=== PATIENT | female | born 1945 | race Two or more races ===

== ENCOUNTER 2019-01-22 09:17 | Inpatient (IN) | payer MEDICARE, MEDICAID ==
[2019-01-22] VITALS (7 sets, daily range): BP systolic 104–149; BP diastolic 59–83
[~2019-01-22] VITALS: Ht 165.1 cm; Wt 99.8 kg
[2019-01-22] MEDS ORDERED: LANTUS SOL100 UNIT/1 SUBQ (09:26)
[2019-01-22] MEDS ORDERED: LISINOPRIL5 MG ORAL (09:26)
--- NOTE | 2019-01-22 09:33 | NUR ---
ED Nurse Note: pt walked in due to shortness of breath started 2 weeks ago, pt stated she has trouble sleeping and sob got worsen 2 days ago. pt was complaining of 3/10 chest pain, no radiation, pt stated that the pain was worse yesterday, pt stated she was wheezing yesterday, denies hx of asthma. pt vs within normal limit.will continue to monitor
[2019-01-22] MEDS ORDERED: Aspirin Baby 81mg ORAL ONE (09:45)
--- NOTE | 2019-01-22 09:49 | Emergency Room Report ---
History of Present Illness General Chief Complaint: Dyspnea/Respdistress Source: Family Member Present Illness HPI .Patient is a 73-year-old female who presents after worsening shortness of breath. Patient had worsening shortness of breath with supine position. She reports having prior history of atrial fibrillation. She states that she is previous had unremarkable cardiac testing in the past. She had been having increased swelling to both legs. Patient reports having increased orthopnea as well as dyspnea on exertion. She states she has been sleeping with 3 pillows for the past few days. This she denies any recent cough she does report having some increased wheezingShe denies any fever. She had some increased nonproductive cough. She reports having been followed by Dr. Caballero for cardiology. Allergies: Coded Allergies: PENICILLINS (Verified Allergy, Unknown, 01/22/19) Patient History Past Medical History: see triage record Reviewed Nursing Documentation: PMH: Agreed; PSxH: Agreed Nursing Documentation-PMH Past Medical History: No History, Except For Hx Hypertension: Yes Hx Diabetes: Yes - liver transplant 2010 Review of Systems All Other Systems: negative except mentioned in HPI Physical Exam Vital Signs Date Time Temp Pulse Resp B/P (MAP) Pulse Ox O2 Delivery O2 Flow Rate FiO2 01/22/19 09:23 98.2 67 18 119/76 (90) 97 Room Air Sp02 EP Interpretation: reviewed, normal General Appearance: normal inspection, alert, mild distress, obese, Chronically Ill Head: atraumatic ENT: normal ENT inspection, hearing grossly normal, normal voice Neck: normal inspection, full range of motion, supple, no bony tend Respiratory: normal inspection, lungs clear, normal breath sounds, no respiratory distress, no retraction, no wheezing Cardiovascular #1: irregularly irregular, edema - 1+ Gastrointestinal: normal bowel sounds, non tender, soft, no guarding, hernia Genitourinary: no CVA tenderness Musculoskeletal: normal inspection, back normal, normal range of motion Neurologic: normal inspection, alert, oriented x3, responsive, hot box spotter III-XII nml as tested, speech normal Psychiatric: normal inspection, judgement/insight normal, mood/affect normal Skin: other - venous stasis changes to both legs Medical Decision Making Diagnostic Impression: Primary Impression: CHF (congestive heart failure) Additional Impression: Atrial fibrillation ER Course Patient presented for shortness of breath. Differential included but was not limited to anemia, pneumonia, pneumothorax, myocardial infarction, pericardial effusion, congestive heart failure, acidosis. Because of complexity of patient' s case laboratory testing and imaging studies were ordered. EKG interpreted by me showed atrial fibrillation with a rate of [address] or T wave changes.Patient was reportedly scheduled for a cardioversion procedure with Dr. Caballero on Thursday.Dr. Aquino was contacted and suggested the patient be admitted for diuresis. Dr. Yevs Story was contacted for inpatient management Labs Test 01/22/19 09:30 White Blood Count 6.4 K/UL (4.8-10.8) Red Blood Count 3.69 M/UL (4.20-5.40) Hemoglobin 12.2 G/DL (12.0-16.0) Hematocrit 36.1 % (37.0-47.0) Mean Corpuscular Volume 98 FL (80-99) Mean Corpuscular Hemoglobin 33.1 PG (27.0-31.0) Mean Corpuscular Hemoglobin Concent 33.8 G/DL (32.0-36.0) Red Cell Distribution Width 12.3 % (11.6-14.8) Platelet Count 174 K/UL (150-450) Mean Platelet Volume 8.1 FL (6.5-10.1) Neutrophils (%) (Auto) 69.7 % (45.0-75.0) Lymphocytes (%) (Auto) 21.0 % (20.0-45.0) Monocytes (%) (Auto) 6.8 % (1.0-10.0) Eosinophils (%) (Auto) 1.7 % (0.0-3.0) Basophils (%) (Auto) 0.8 % (0.0-2.0) Prothrombin Time 10.7 SEC (9.30-11.50) Prothromb Time International Ratio 1.0 (0.9-1.1) Activated Partial Thromboplast Time 25 SEC (23-33) Sodium Level 137 MMOL/L (136-145) Potassium Level 4.5 MMOL/L (3.5-5.1) Chloride Level 103 MMOL/L (98-107) Carbon Dioxide Level 26 MMOL/L (21-32) Anion Gap 8 mmol/L (5-15) Blood Urea Nitrogen 24 mg/dL (7-18) Creatinine 0.9 MG/DL (0.55-1.30) Estimat Glomerular Filtration Rate mL/min (>60) Glucose Level 148 MG/DL (74-106) Calcium Level 9.2 MG/DL (8.5-10.1) Total Bilirubin 0.8 MG/DL (0.2-1.0) Aspartate Amino Transf (AST/SGOT) 17 U/L (15-37) Alanine Aminotransferase (ALT/SGPT) 25 U/L (12-78) Alkaline Phosphatase 89 U/L (46-116) Total Creatine Kinase 70 U/L (26-308) Creatine Kinase MB 1.0 NG/ML (0.0-3.6) Creatine Kinase MB Relative Index 1.4 Troponin I 0.009 ng/mL (0.000-0.056) Pro-B-Type Natriuretic Peptide 1810 pg/mL (0-125) Total Protein 7.2 G/DL (6.4-8.2) Albumin 4.2 G/DL (3.4-5.0) Globulin 3.0 g/dL Albumin/Globulin Ratio 1.4 (1.0-2.7) Lipase 106 U/L (73-393) EKG Diagnostic Results Rate: normal Rhythm: other - afib Last Vital Signs Date Time Temp Pulse Resp B/P (MAP) Pulse Ox O2 Delivery O2 Flow Rate FiO2 01/22/19 09:30 67 18 Room Air 01/22/19 09:30 98.2 119/76 97 Status: unchanged Disposition: ADMITTED INPATIENT Condition: Serious Selwyn Couch MD Jan 22, 2019 09:49
--- NOTE | 2019-01-22 09:54 | NUR ---
ED Nurse Note: pt is medicated as ordered. lasix given iv and pt able to tolerate. ermd cancelled asa 161mg po order. eyewear manufacturing tech on bedside.
[2019-01-22 10:00] LABS: BASOPHILS % (AUTO) 0.8 % (0.0-2.0); EOSINOPHILS % (AUTO) 1.7 % (0.0-3.0); HEMATOCRIT 36.1 % (37.0-47.0); HEMOGLOBIN 12.2 G/DL (12.0-16.0); MEAN CORPUSCULAR VOLUME 98 FL (80-99); MONOCYTES % (AUTO) 6.8 % (1.0-10.0); NEUTROPHILS % (AUTO) 69.7 % (45.0-75.0); PLATELET COUNT 174 K/UL (150-450); RED BLOOD COUNT 3.69 M/UL (4.20-5.40); RED CELL DISTRIBUTION WIDTH 12.3 % (11.6-14.8); WHITE BLOOD COUNT 6.4 K/UL (4.8-10.8)
[2019-01-22 10:06] LABS: ANION GAP 8 mmol/L (5-15); BLOOD UREA NITROGEN 24 mg/dL (7-18); CALCIUM 9.2 MG/DL (8.5-10.1); CARBON DIOXIDE 26 MMOL/L (21-32); CHLORIDE 103 MMOL/L (98-107); CREATININE 0.9 MG/DL (0.55-1.30); POTASSIUM 4.5 MMOL/L (3.5-5.1); SODIUM 137 MMOL/L (136-145)
--- NOTE | 2019-01-22 10:06 | Diagnostic Imaging Report ---
EXAM: XR Chest, 1 View CLINICAL HISTORY: CP TECHNIQUE: Frontal view of the chest. COMPARISON: Chest radiograph on 12/03/2006 FINDINGS: Hardware: None. Lungs/pleura: Normal. No focal consolidation. No pleural effusion or pneumothorax. Heart/mediastinum: Similar to slightly increased enlargement of the cardiomediastinal silhouette. Soft tissues: Unremarkable. Bones: No acute fracture. Degenerative changes of the acromioclavicular joints. Upper abdomen: Normal. IMPRESSION: No acute disease identified.
[2019-01-22 10:18] LABS: ALANINE AMINOTRANSFERASE 25 U/L (12-78); ALBUMIN 4.2 G/DL (3.4-5.0); ALBUMIN/GLOBULIN RATIO 1.4 (1.0-2.7); ALKALINE PHOSPHATASE 89 U/L (46-116); ASPARTATE AMINO TRANSFERASE 17 U/L (15-37); BILIRUBIN,TOTAL 0.8 MG/DL (0.2-1.0); CREATINE KINASE 70 U/L (26-308)
--- NOTE | 2019-01-22 10:21 | NUR ---
ED Nurse Note: ermd on bedside talking with pt regarding the plan of care and imprtance of admission. pt able to verbalize understanding.
[2019-01-22] MEDS: Albuterol/Ipratropium 3ml neb HHN ONE ×2 (10:26→10:31)
--- NOTE | 2019-01-22 10:42 | NUR ---
ED Nurse Note: with new order from ermd, iv lasix given, pt able to tolerate. pt able to urinate independently on the bedside commode. no sob noted. pt vss within normal limit.
--- NOTE | 2019-01-22 11:28 | NUR ---
ED Nurse Note: attempted to give report to the accepting rn and rn not able to take the report yet. will f/u later.
--- NOTE | 2019-01-22 11:45 | NUR ---
ED Nurse Note: pt was transfered to tele bed and report was given to sridevi rn.pt vss and belongings was endorsed to rn.
[2019-01-22] MEDS ORDERED: ELIQUIS2.5 MG PO (11:46)
--- NOTE | 2019-01-22 12:00 | NUR ---
NURSE NOTES: Pt transferred safely to floor from ED. personnel monitor applied and pt is A-fib in the 70s. Patient belongings verified. Pt has iphone and electronic data interchange specialist at bedside. Report received from SONJA Willingham. Pt shows no signs of distress, denies pain/SOB. A+Ox4. Respirations are even and unlabored on room air. IV site is patent and intact. Bed is at lowest position, brakes engaged, siderails x2, bed alarm on, and call light within reach. Pt is in stable condition at this time; admission orders in. Will continue to monitor.
[2019-01-22 12:32] LABS: APPEARANCE,URINE CLEAR; BILIRUBIN, URINE NEGATIVE (NEGATIVE); COLOR,URINE PALE YELLOW; GLUCOSE, URINE (UA) NEGATIVE (NEGATIVE); KETONES,URINE NEGATIVE (NEGATIVE); LEUKOCYTE ESTERASE ,URINE NEGATIVE (NEGATIVE); NITRITE,URINE NEGATIVE (NEGATIVE); PH,URINE 7 (4.5-8.0); PROTEIN,URINE NEGATIVE (NEGATIVE); UROBILINOGEN,URINE NORMAL MG/DL (0.0-1.0)
[2019-01-22] MEDS ORDERED: Enalaprilat 1.25mg/ml Inj IV PRN (12:45)
[2019-01-22] MEDS ORDERED: Miralax 17gm pkt ORAL PRN (12:45)
[2019-01-22] MEDS ORDERED: dilTIAZem HCl 25mg/5ml Inj IV PRN (12:45)
[2019-01-22] MEDS ORDERED: Albuterol/Ipratropium 3ml neb HHN PRN (12:45)
[2019-01-22] MEDS ORDERED: Nitroglycerin Subl 0.4mg tab SL PRN (12:45)
--- NOTE | 2019-01-22 12:59 | Cardiology Progress Note ---
Assessment/Plan Assessment/Plan The patient is seen and examined, full consult note is dictated. Objective Last 24 Hour Vital Signs Date Time Temp Pulse Resp B/P (MAP) Pulse Ox O2 Delivery O2 Flow Rate FiO2 01/22/19 11:26 84 20 149/59 99 Room Air 01/22/19 10:41 70 22 104/62 96 Room Air 01/22/19 10:27 64 24 93 01/22/19 10:27 64 24 93 01/22/19 10:27 64 24 93 01/22/19 09:30 67 18 Room Air 01/22/19 09:30 98.2 67 18 119/76 97 Room Air 01/22/19 09:25 98.2 67 18 119/76 97 Room Air 01/22/19 09:23 98.2 67 18 119/76 (90) 97 Room Air Laboratory Tests Test 01/22/19 09:30 01/22/19 11:52 White Blood Count 6.4 K/UL (4.8-10.8) Red Blood Count 3.69 M/UL (4.20-5.40) L Hemoglobin 12.2 G/DL (12.0-16.0) Hematocrit 36.1 % (37.0-47.0) L Mean Corpuscular Volume 98 FL (80-99) Mean Corpuscular Hemoglobin 33.1 PG (27.0-31.0) H Mean Corpuscular Hemoglobin Concent 33.8 G/DL (32.0-36.0) Red Cell Distribution Width 12.3 % (11.6-14.8) Platelet Count 174 K/UL (150-450) Mean Platelet Volume 8.1 FL (6.5-10.1) Neutrophils (%) (Auto) 69.7 % (45.0-75.0) Lymphocytes (%) (Auto) 21.0 % (20.0-45.0) Monocytes (%) (Auto) 6.8 % (1.0-10.0) Eosinophils (%) (Auto) 1.7 % (0.0-3.0) Basophils (%) (Auto) 0.8 % (0.0-2.0) Prothrombin Time 10.7 SEC (9.30-11.50) Prothromb Time International Ratio 1.0 (0.9-1.1) Activated Partial Thromboplast Time 25 SEC (23-33) D-Dimer 1.89 mg/L FEU (0.00-0.49) H Sodium Level 137 MMOL/L (136-145) Potassium Level 4.5 MMOL/L (3.5-5.1) Chloride Level 103 MMOL/L (98-107) Carbon Dioxide Level 26 MMOL/L (21-32) Anion Gap 8 mmol/L (5-15) Blood Urea Nitrogen 24 mg/dL (7-18) H Creatinine 0.9 MG/DL (0.55-1.30) Estimat Glomerular Filtration Rate mL/min (>60) Glucose Level 148 MG/DL (74-106) H Calcium Level 9.2 MG/DL (8.5-10.1) Total Bilirubin 0.8 MG/DL (0.2-1.0) Aspartate Amino Transf (AST/SGOT) 17 U/L (15-37) Alanine Aminotransferase (ALT/SGPT) 25 U/L (12-78) Alkaline Phosphatase 89 U/L (46-116) Total Creatine Kinase 70 U/L (26-308) Creatine Kinase MB 1.0 NG/ML (0.0-3.6) Creatine Kinase MB Relative Index 1.4 Troponin I 0.009 ng/mL (0.000-0.056) Pro-B-Type Natriuretic Peptide 1810 pg/mL (0-125) H Total Protein 7.2 G/DL (6.4-8.2) Albumin 4.2 G/DL (3.4-5.0) Globulin 3.0 g/dL Albumin/Globulin Ratio 1.4 (1.0-2.7) Lipase 106 U/L (73-393) Urine Color Pale yellow Urine Appearance Clear Urine pH 7 (4.5-8.0) Urine Specific [place] 1.005 (1.005-1.035) Urine Protein Negative (NEGATIVE) Urine Glucose (UA) Negative (NEGATIVE) Urine Ketones Negative (NEGATIVE) Urine Blood Negative (NEGATIVE) Urine Nitrite Negative (NEGATIVE) Urine Bilirubin Negative (NEGATIVE) Urine Urobilinogen Normal MG/DL (0.0-1.0) Urine Leukocyte Esterase Negative (NEGATIVE) Virgil Caballero MD Jan 22, 2019 12:59
[2019-01-22] MEDS ORDERED: Dextrose 50% 25ml Syringe IV PRN (13:00)
[2019-01-22] MEDS ORDERED: VITAMIN D250000 UNI1 ORAL (13:08)
[2019-01-22] MEDS ORDERED: FUROSEMIDE20 M1 ORAL (13:08)
[2019-01-22] MEDS ORDERED: MAGNESIUM OXID250 MG PO (13:08)
[2019-01-22] MEDS ORDERED: LYRICA75 M1 ORAL (13:08)
[2019-01-22] MEDS ORDERED: OMEGA-3 1,0001 EACH PO (13:08)
[2019-01-22] MEDS ORDERED: METOPROLOL SUCC50 MG ORAL (13:08)
[2019-01-22] MEDS ORDERED: JANUVIA25 MG ORAL (13:08)
[2019-01-22] MEDS ORDERED: TACROLIMUS0.5 MG PO (13:08)
[2019-01-22] MEDS ORDERED: LIPITOR10 MG ORAL (13:08)
[2019-01-22] MEDS ORDERED: Metoprolol Succinate XL 50mg tab ORAL SCH (13:30)
--- NOTE | 2019-01-22 13:33 | NUR ---
CASE MANAGEMENT: INITIAL REVIEW 73 YO F PRESENTED TO OUR ED FROM HOME CC: DYSPNEA PMHx: HTN. DM. LIVER TRANSPLANT 2010. SI:CP. CHF EXACERBATION. A FIB. T 98.2 HR 67 RR 18 B/P 119/76 SATS 97% ON RA BUN 24 GLU 148 BNP 1810 DDIMER 1.89 IS: ASA PO X1 LASIX IV X2 DUO NEB HHN X1 PATIENT ADMITTED UNDER OBS TO TELE 01/22/2019 @ 1030 DCP: PATIENT TO BE DISCHARGED TO HOME ONCE MEDICALLY CLEARED. PLAN OF CARE: 2D ECHO CARDIO EVAL Addendum: 01/22/19 at 1342 by Starr Moreira CM INTERQUAL MET
--- NOTE | 2019-01-22 15:00 | NUR ---
NURSE NOTES: Received patient's med list from daughter. Input all of her meds. Left message with Dr. Suarez about the new medications and if he wanted to continue any of them; awaiting response.
[2019-01-22] MEDS: NovoLOG Insulin Flexpen SUBQ SCH ×2 (16:30→21:09)
--- NOTE | 2019-01-22 18:00 | Consultation ---
DATE OF CONSULTATION: 01/22/2019 CARDIOLOGY CONSULTATION CONSULTING PHYSICIAN: Virgil Caballero M.D. REFERRING PHYSICIAN: Yves Story D.O. REASON FOR CONSULTATION: Management of atrial fibrillation and congestive heart failure. HISTORY OF PRESENT ILLNESS: This is a 73-year-old female, known to ga, who was recently seen in my office. This is a very delightful 73-year-old female known to ga, who presented for progressive worsening shortness of breath associated with 3-pillow orthopnea, paroxysmal nocturnal dyspnea, and worsening of bilateral lower extremity edema. She has had persistent atrial fibrillation and she quit on anticoagulation therapy with Eliquis, and she agreed to go to [facility] as an outpatient for transesophageal echocardiography and cardioversion. However, she could now resist coming to the emergency department due to worsening of heart failure associated with atrial fibrillation and underlying problems. Her cardiovascular history is also significant for history of diabetes mellitus, hypertension, and obesity. She had history of liver transplantation in 2010. She also suffers from lower extremity venous insufficiency and is followed by Dr. Buchanan. At the time of my evaluation, the patient felt better as far as shortness of breath is concerned after receiving IV Lasix in the emergency department. Her blood pressure at the time of arrival was 119/76 mmHg and pulse rate was 67. A 12-lead electrocardiogram obtained in emergency department revealed atrial fibrillation with associated right bundle-branch block as well as left anterior fascicular block, but controlled ventricular response at 65. There was no acute ischemic changes. In fact, troponin I level was within normal limits. Her beta-natriuretic peptide confirmed the presence of a continued heart failure at the level of 1810. Chest x-ray also showed cardiomegaly mostly in the right atrial and ventricular chambers with evidence of pulmonary edema. The patient was admitted to telemetry for further evaluation. I have asked Dr. Yves Story to admit this patient in internal medicine. Dr. Suarez from Pulmonary will follow the patient. PAST MEDICAL HISTORY: 1. Hypertension. 2. Diabetes mellitus. 3. Liver transplant. 4. Bilateral lower extremity venous insufficiency. PAST SURGICAL HISTORY: Liver transplantation in 2010. MEDICATIONS: List of medications in the outpatient setting included apixaban 2.5 mg twice daily. Lipitor 10 mg p.o. at bedtime, vitamin D 50,000 units once a week for 6 weeks, Lasix 20 mg p.o. daily, Lantus insulin, lisinopril 2.5 mg p.o. daily, magnesium oxide 200 mg twice daily, metoprolol 50 mg daily, omega-3 fatty acid 1 tablet twice daily, Lyrica 25 mg twice daily, Januvia 100 mg p.o. daily, and tacrolimus 0.5 mg daily for liver transplant purposes. ALLERGIES: Penicillin. SOCIAL HISTORY: Denies any tobacco, alcohol, or illicit drug use. FAMILY HISTORY: No premature coronary artery disease in the first-degree relatives. REVIEW OF SYSTEMS: HEENT: Denies any headache, diplopia, or blurred vision. CONSTITUTIONAL: Denies any fever, chills, night sweats, some recent weight gain. CARDIOVASCULAR: Denies any chest pain, however, has been having progressively worsening shortness of breath, worsening of bilateral lower extremity edema, as well as 3+ orthopnea, and PND. Denies any syncope or palpitation. PULMONARY: Shortness of breath, but negative for hemoptysis or wheezing. GASTROINTESTINAL: Denies any nausea, vomiting, diarrhea, constipation, abdominal pain, or GI bleed. GENITOURINARY: Denies any hematuria, dysuria, or incontinence. NEUROLOGY: Denies any motor dysfunction, sensory deficit, or altered speech. PHYSICAL EXAMINATION: VITAL SIGNS: Blood pressure at the time of arrival to the hospital was 119/76, pulse of 67, respirations 18, O2 saturation 97% on room air, and temperature of 98.2 degrees Fahrenheit. GENERAL: The patient is a very pleasant 73-year-old female, in no apparent respiratory distress. Alert and oriented x4 with obesity. HEENT: Atraumatic and normocephalic. Anicteric. Pupils are equal, round, and reactive to light and accommodation. Extraocular muscles intact. NECK: JVP elevated about 15 cm. No carotid bruits. Carotid upstrokes 2+ bilaterally. CARDIOVASCULAR: Normal S1, S2. Irregularly irregular rhythm. A 2/6 mid systolic murmur at the left sternal border. PMI is at fourth intercostal space in the midclavicular line. LUNGS: Clear to auscultation bilaterally at this time. ABDOMEN: Soft, nontender, and nondistended. Obese. No hepatosplenomegaly. Positive bowel sounds. EXTREMITIES: There is 1+ bilateral lower extremity edema as well as discoloration in the inner distal third of the legs as well as ankles consistent with venous insufficiency. LABORATORY FINDINGS: WBC was 6.4, hemoglobin 12.2, hematocrit 36.1%, and platelet count is 174,000. INR was 1.0. Sodium 137, potassium is 4.5, chloride 103, bicarbonate 26, BUN 24, creatinine 0.9, and glucose is 148. Calcium is 9.2. Troponin I was 0.009. ProBNP was 1810. Chest x-ray revealed cardiomegaly with mild pulmonary edema. ASSESSMENT AND PLAN: This is a very unfortunate 73-year-old female seen in Cardiology consultation. 1. Atrial fibrillation with controlled ventricular response. We would like to attempt for transesophageal echocardiography and cardioversion, we will try to find a spot on 01/24/2019. We will discuss with Cardiology. There is no need to hold on Eliquis at this time. I will continue with her rate control with metoprolol. 2. Most likely acute on chronic diastolic congestive heart failure. We will continue with furosemide. We will check creatinine on a routine basis. We will obtain a magnesium level as well. A 2D echocardiogram we be held to decide the left ventricular systolic function and assessment of intracardiac filling pressures. 3. History of diabetes mellitus. She requires to be on statins. 4. History of hypertension. We will continue the patient on current blood pressure medication including lisinopril and metoprolol. Thank you, Dr. Story and Dr. Suarez, for managing this patient with me. Virgil Caballero M.D. DR: PASHA JOB#: [id number] CC:
--- NOTE | 2019-01-22 19:00 | NUR ---
NURSE NOTES: OBTAINED REPORT FROM ANDREW CASILLAS. PT RESTING IN BED FREE FROM APPARENT DISTRESS.
--- NOTE | 2019-01-22 19:06 | NUR ---
HAND-OFF: Report given to SONJA Douglas. Pt in stable condition; plan of care endorsed.
[2019-01-22] MEDS: Eliquis 2.5mg tablet ORAL SCH (21:06)
--- NOTE | 2019-01-22 21:44 | History & Physical ---
History and Physical History & Physicial Internal Med H&P Covering for Dr. Story DOS: 01/22/19 Chief Complaint: Dyspnea/Respdistress HPI 73-year-old female who presents after worsening shortness of breath. Patient had worsening shortness of breath with supine position. She reports having prior history of atrial fibrillation. She states that she is previous had unremarkable cardiac testing in the past. She had been having increased swelling to both legs. Patient reports having increased orthopnea as well as dyspnea on exertion. She states she has been sleeping with 3 pillows for the past few days. This she denies any recent cough she does report having some increased wheezingShe denies any fever. She had some increased nonproductive cough. She reports having been followed by Dr. Caballero for cardiology, will potentially undergo cardioversion Allergies: PENICILLINS (Verified Allergy, Unknown, 01/22/19) Past Medical History: see triage record Reviewed Nursing Documentation: PMH: Agreed; PSxH: Agreed Nursing Documentation-PMH Past Medical History: No History, Except For Hx Hypertension: Yes Hx Diabetes: Yes - liver transplant 2010 Review of Systems All Other Systems: negative except mentioned in HPI Physical Exam Vital Signs Date Time Temp Pulse Resp B/P (MAP) Pulse Ox O2 Delivery O2 Flow Rate FiO2 01/22/19 09:23 98.2 67 18 119/76 (90) 97 Room Air Sp02 EP Interpretation: reviewed, normal General Appearance: normal inspection, alert, mild distress, obese, Chronically Ill Head: atraumatic ENT: normal ENT inspection, hearing grossly normal, normal voice Neck: normal inspection, full range of motion, supple, no bony tend Respiratory: ++ sob wheezing bilaterally Cardiovascular #1: irregularly irregular, edema - 1+ Gastrointestinal: normal bowel sounds, non tender, soft, no guarding, hernia Genitourinary: no CVA tenderness Musculoskeletal: normal inspection, back normal, normal range of motion Neurologic: normal inspection, alert, oriented x3, responsive Psychiatric: normal inspection, judgement/insight normal, mood/affect normal Skin: other - venous stasis changes to both legs Labs: reviewd Imaging: noted Assessment and Recs: # Atrial fibrillation with controlled ventricular response. Per cards, would like to attempt for transesophageal echocardiography and cardioversion, potentially 01/24/19 --> ok to continue eliquis --> metop as needed # Acute on chronic diastolic congestive heart failure. --> lasix as needed diuresis --> 2decho as per cards # History of diabetes mellitus. --> continue statin and asa # History of hypertension. --> on lisinopril and mtp --> as per cards --> sbp goal <140 # Azotemia - consider ivf as per cards --> trend bmp as needed Arsh Kilpatrick MD Jan 22, 2019 21:44
[2019-01-23] VITALS: BP 99/59
[2019-01-23 04:00] VITALS: BP 128/74
[2019-01-23] MEDS: NovoLOG Insulin Flexpen SUBQ SCH ×4 (05:58→20:39)
--- NOTE | 2019-01-23 06:18 | NUR ---
NURSE NOTES: CALLED MD NAVA [phone] REGARDING CONTINUING HOME MED TACROLIMUS PER PT REQUEST, LEFT MESSAGE WITH CONTACT INFO. AWAITING CALL BACK.
--- NOTE | 2019-01-23 07:00 | NUR ---
HAND-OFF: Full report given to Mady CASILLAS. Pt resting in bed free from apparent distress.
[2019-01-23 07:13] LABS: BASOPHILS % (AUTO) 0.8 % (0.0-2.0); EOSINOPHILS % (AUTO) 2.2 % (0.0-3.0); HEMATOCRIT 35.2 % (37.0-47.0); HEMOGLOBIN 11.9 G/DL (12.0-16.0); LYMPHOCYTES % (AUTO) 26.7 % (20.0-45.0); MEAN CORPUSCULAR VOLUME 98 FL (80-99); NEUTROPHILS % (AUTO) 61.4 % (45.0-75.0); PLATELET COUNT 157 K/UL (150-450); RED CELL DISTRIBUTION WIDTH 12.1 % (11.6-14.8); WHITE BLOOD COUNT 6.1 K/UL (4.8-10.8)
[2019-01-23 07:44] LABS: CHOLESTEROL 172 MG/DL (< 200); HDL CHOLESTEROL 29 MG/DL (40-60); TRIGLYCERIDES 115 MG/DL (30-150)
--- NOTE | 2019-01-23 07:48 | NUR ---
NURSE NOTES: received report from Stella. patient in bed awake and alert. All safety precautions in place. will follow
[2019-01-23 08:00] VITALS: BP 120/62
[2019-01-23] MEDS: Lisinopril 2.5mg tab ORAL SCH (09:22)
[2019-01-23] MEDS: Eliquis 2.5mg tablet ORAL SCH ×2 (09:22→20:37)
[2019-01-23] MEDS: Aspirin Baby 81mg ORAL SCH (09:22)
[2019-01-23] MEDS: Metoprolol Succinate XL 50mg tab ORAL SCH (09:22)
[2019-01-23 12:00] VITALS: BP 112/64
--- NOTE | 2019-01-23 15:41 | NUR ---
CASE MANAGEMENT: REVIEW 01/23/2019 SI:CP. CHF EXACERBATION. A FIB. T 97.8 HR 60 RR 18 B/P 99/59 SATS 97% ON RA TROPONIN 0.015 IS: ELIQUIS PO Q12H PROGRAF PO QHS LISINOPRIL PO QD ASA PO QD PROTONIX PO QD TOPROL PO QD INSULIN ASPART SUBQ AC/HS TELE STATUS DCP: PATIENT TO BE DISCHARGED TO HOME ONCE MEDICALLY CLEARED. PLAN OF CARE: 2D ECHO EF 55-60% SHLOMO AND CARDIOVERSION
[2019-01-23 16:00] VITALS: BP 113/66
--- NOTE | 2019-01-23 19:49 | NUR ---
HAND-OFF: Report given to Susanne Echeverria.Patient stable at bedside. Plan of care endorsed.
--- NOTE | 2019-01-23 19:50 | NUR ---
NURSE NOTES: Report received from SONJA Earl. Observed pt sitting in chair with family members at bedside. A/O x4. Afib with HR of 70 noted. RA with no signs of SOB. IV on L AC, asymptomatic. Bed in the lowest position. Side rails up x2. Call light within reach. Will continue to monitor.
[2019-01-23 20:00] VITALS: BP 102/67
--- NOTE | 2019-01-23 20:05 | General Progress Note ---
Assessment/Plan Assessment/Plan: Assessment and Recs: # Atrial fibrillation with controlled ventricular response. Per cards, would like to attempt for transesophageal echocardiography and cardioversion, potentially 01/24/19 --> ok to continue eliquis --> metop as needed --> eval with cards # Acute on chronic diastolic congestive heart failure. --> lasix as needed diuresis --> 2decho as per cards # History of diabetes mellitus. --> continue statin and asa # History of hypertension. --> on lisinopril and mtp --> as per cards --> sbp goal <140 # Azotemia - consider ivf as per cards --> trend bmp as needed Appreciate insurance consultant recs Subjective HEENT: Denies: no symptoms, eye pain, blurred vision, tearing, double vision, ear pain, ear discharge, nose pain, nose congestion, throat pain, throat swelling, mouth pain, mouth swelling, other Cardiovascular: Denies: no symptoms, chest pain, edema, irregular heart rate, lightheadedness, palpitations, syncope, other Respiratory: Denies: no symptoms, cough, orthopnea, shortness of breath, SOB with excertion, SOB at rest, sputum, stridor, wheezing, other Gastrointestinal/Abdominal: Denies: no symptoms, abdomen distended, abdominal pain, black stools, tarry stools, blood in stool, constipated, diarrhea, difficulty swallowing, nausea, poor appetite, poor fluid intake, rectal bleeding , vomiting, other Genitourinary: Denies: no symptoms, burning, discharge, frequency, flank pain, hematuria, incontinence, pain, urgency, other Neurologic/Psychiatric: Denies: no symptoms, anxiety, depressed, emotional problems, headache, numbness, paresthesia, pre-existing deficit, seizure, tingling, tremors, weakness, other Endocrine: Denies: no symptoms, excessive sweating, flushing, intolerance to cold, intolerance to heat, increased hunger, increased thirst, increased urine, unexplained weight gain, unexplained weight loss, other Allergies: Coded Allergies: PENICILLINS (Verified Allergy, Unknown, 01/22/19) Subjective 01/23: vital signs improved, feeling better, tolerating meds well Objective Last 24 Hour Vital Signs Date Time Temp Pulse Resp B/P (MAP) Pulse Ox O2 Delivery O2 Flow Rate FiO2 01/23/19 18:00 59 01/23/19 16:00 97.5 65 20 113/66 (82) 92 01/23/19 13:01 63 18 97 Room Air 21 01/23/19 12:00 57 01/23/19 12:00 97.9 63 21 112/64 (80) 98 01/23/19 09:22 62 120/62 01/23/19 09:22 120/62 01/23/19 09:00 Room Air 01/23/19 08:00 64 01/23/19 08:00 97.9 62 22 120/62 (81) 97 01/23/19 04:00 97.7 70 18 128/74 (92) 98 01/23/19 04:00 61 01/23/19 00:00 97.8 60 18 99/59 (72) 97 01/23/19 00:00 63 Laboratory Tests 01/23/19 06:30: White Blood Count 6.1, Red Blood Count 3.60L, Hemoglobin 11.9L, Hematocrit 35.2L , Mean Corpuscular Volume 98, Mean Corpuscular Hemoglobin 33.1H, Mean Corpuscular Hemoglobin Concent 33.8, Red Cell Distribution Width 12.1, Platelet Count 157, Mean Platelet Volume 8.5, Neutrophils (%) (Auto) 61.4, Lymphocytes (% ) (Auto) 26.7, Monocytes (%) (Auto) 9.0, Eosinophils (%) (Auto) 2.2, Basophils ( %) (Auto) 0.8, Prothrombin Time 10.7, Prothromb Time International Ratio 1.0, Activated Partial Thromboplast Time 26, Troponin I 0.015, C-Reactive Protein, Quantitative 0.8, Triglycerides Level 115, Cholesterol Level 172, LDL Cholesterol 124H, HDL Cholesterol 29L, Cholesterol/HDL Ratio 5.9H, Thyroid Stimulating Hormone (TSH) 3.763H Height (Feet): 5 Height (Inches): 5.00 Weight (Pounds): 220 Objective General: normal inspection, alert, mild distress, obese, Chronically Ill ENT: normal ENT inspection, hearing grossly normal, normal voice Neck: normal inspection, full range of motion, supple, no bony tend Respiratory: ++ sob wheezing bilaterally Cardiovascular #1: irregularly irregular, edema - 1+ Gastrointestinal: normal bowel sounds, non tender, soft, no guarding, hernia Genitourinary: no CVA tenderness Msk: normal inspection, back normal, normal range of motion Neurologic: normal inspection, alert, oriented x3, responsive Psychiatric: normal inspection, judgement/insight normal, mood/affect normal Skin: other - venous stasis changes to both legs Arsh Kilpatrick MD Jan 23, 2019 20:05
--- NOTE | 2019-01-23 22:22 | Cardiology Progress Note ---
Assessment/Plan Assessment/Plan 1. Atrial fibrillation with controlled ventricular response. Scheduled for SHLOMO and cardioversion on Thursday. 2. Most likely acute on chronic diastolic congestive heart failure, continue furosemide. 2D echocardiogram confirm diastolic CHF, in addition, there is mild pulmonary HTN. 3. History of diabetes mellitus. Continue ASA and statins. 4. History of hypertension, continue lisinopril and metoprolol. Subjective Subjective Atrial fibrillation with controlled ventricular response now at 50. Feeling less SOB. Objective Last 24 Hour Vital Signs Date Time Temp Pulse Resp B/P (MAP) Pulse Ox O2 Delivery O2 Flow Rate FiO2 01/23/19 20:00 64 01/23/19 20:00 97.5 59 20 102/67 (79) 97 01/23/19 18:00 59 01/23/19 16:00 97.5 65 20 113/66 (82) 92 01/23/19 13:01 63 18 97 Room Air 21 01/23/19 12:00 57 01/23/19 12:00 97.9 63 21 112/64 (80) 98 01/23/19 09:22 62 120/62 01/23/19 09:22 120/62 01/23/19 09:00 Room Air 01/23/19 08:00 64 01/23/19 08:00 97.9 62 22 120/62 (81) 97 01/23/19 04:00 97.7 70 18 128/74 (92) 98 01/23/19 04:00 61 01/23/19 00:00 97.8 60 18 99/59 (72) 97 01/23/19 00:00 63 2D Echo: LVEF 55%, KRIS, Mild MR, RVSP 39 mmHg Laboratory Tests Test 01/23/19 06:30 White Blood Count 6.1 K/UL (4.8-10.8) Red Blood Count 3.60 M/UL (4.20-5.40) L Hemoglobin 11.9 G/DL (12.0-16.0) L Hematocrit 35.2 % (37.0-47.0) L Mean Corpuscular Volume 98 FL (80-99) Mean Corpuscular Hemoglobin 33.1 PG (27.0-31.0) H Mean Corpuscular Hemoglobin Concent 33.8 G/DL (32.0-36.0) Red Cell Distribution Width 12.1 % (11.6-14.8) Platelet Count 157 K/UL (150-450) Mean Platelet Volume 8.5 FL (6.5-10.1) Neutrophils (%) (Auto) 61.4 % (45.0-75.0) Lymphocytes (%) (Auto) 26.7 % (20.0-45.0) Monocytes (%) (Auto) 9.0 % (1.0-10.0) Eosinophils (%) (Auto) 2.2 % (0.0-3.0) Basophils (%) (Auto) 0.8 % (0.0-2.0) Prothrombin Time 10.7 SEC (9.30-11.50) Prothromb Time International Ratio 1.0 (0.9-1.1) Activated Partial Thromboplast Time 26 SEC (23-33) Troponin I 0.015 ng/mL (0.000-0.056) C-Reactive Protein, Quantitative 0.8 mg/dL (0.00-0.90) Triglycerides Level 115 MG/DL (30-150) Cholesterol Level 172 MG/DL (< 200) LDL Cholesterol 124 mg/dL (<100) H HDL Cholesterol 29 MG/DL (40-60) L Cholesterol/HDL Ratio 5.9 (3.3-4.4) H Thyroid Stimulating Hormone (TSH) 3.763 uiU/mL (0.358-3.740) Objective HEENT: Atraumatic and normocephalic. Anicteric. Pupils are equal, round, and reactive to light and accommodation. Extraocular muscles intact. NECK: JVP elevated about 15 cm. No carotid bruits. Carotid upstrokes 2+ bilaterally. CARDIOVASCULAR: Normal S1, S2. Irregularly irregular rhythm. A 2/6 mid systolic murmur at the left sternal border. PMI is at fourth intercostal space in the midclavicular line. LUNGS: Clear to auscultation bilaterally at this time. ABDOMEN: Soft, nontender, and nondistended. Obese. No hepatosplenomegaly. Positive bowel sounds. EXTREMITIES: No edema, clubbing or cyanosis. Virgil Caballero MD Jan 23, 2019 22:22
[2019-01-24] VITALS (14 sets, daily range): BP systolic 93–118; BP diastolic 61–78
--- NOTE | 2019-01-24 01:00 | NUR ---
NURSE NOTES: Observed pt sleeping in the bed. No distress noted at this time. Afib with HR of 56 noted on air sampling and monitoring. Will continue to monitor.
[2019-01-24] MEDS: NovoLOG Insulin Flexpen SUBQ SCH ×4 (05:50→20:25)
--- NOTE | 2019-01-24 05:54 | NUR ---
NURSE NOTES: BS of 139 noted. Pt will be NPO before procedure and no insulin given. Will continue to monitor.
--- NOTE | 2019-01-24 07:27 | NUR ---
NURSE NOTES: Report received from SONJA Echeverria. Patient awake. In RA. AOx4. Denies any pain or SOB. IV patent, flushed and SL. Bed on lowest position, side rails upx2, brakes engaged. Call light within easy reach.
--- NOTE | 2019-01-24 07:30 | NUR ---
NURSE NOTES: Patient communicated concern about not understanding procedure. To follow up.
--- NOTE | 2019-01-24 07:32 | NUR ---
HAND-OFF: Report given to SONJA Nash. No distress noted at this time.
--- NOTE | 2019-01-24 08:40 | NUR ---
NURSE NOTES: Procedure explanation given to Pt. by Noe. Consent signed.
--- NOTE | 2019-01-24 08:40 | General Progress Note ---
Assessment/Plan Assessment/Plan: Assessment and Recs: # Atrial fibrillation with controlled ventricular response, the hr is currently 50-70s. Per cards, would like to attempt for transesophageal echocardiography and cardioversion, potentially 01/24/19 --> ok to continue eliquis --> metop as needed --> eval with cards # Acute on chronic diastolic congestive heart failure. --> lasix as needed diuresis --> 2decho as per cards # Diabetes mellitus type 2. --> continue statin and asa # History of hypertension. --> on lisinopril and mtp --> as per cards --> sbp goal <140 # Azotemia - consider ivf as per cards --> trend bmp as needed Appreciate fashion consultant recs Subjective Constitutional: Denies: no symptoms, chills, diaphoresis, fever, malaise, weakness, other HEENT: Denies: no symptoms, eye pain, blurred vision, tearing, double vision, ear pain, ear discharge, nose pain, nose congestion, throat pain, throat swelling, mouth pain, mouth swelling, other Cardiovascular: Denies: no symptoms, chest pain, edema, irregular heart rate, lightheadedness, palpitations, syncope, other Respiratory: Denies: no symptoms, cough, orthopnea, shortness of breath, SOB with excertion, SOB at rest, sputum, stridor, wheezing, other Gastrointestinal/Abdominal: Denies: no symptoms, abdomen distended, abdominal pain, black stools, tarry stools, blood in stool, constipated, diarrhea, difficulty swallowing, nausea, poor appetite, poor fluid intake, rectal bleeding , vomiting, other Genitourinary: Denies: no symptoms, burning, discharge, frequency, flank pain, hematuria, incontinence, pain, urgency, other Neurologic/Psychiatric: Denies: no symptoms, anxiety, depressed, emotional problems, headache, numbness, paresthesia, pre-existing deficit, seizure, tingling, tremors, weakness, other Endocrine: Denies: no symptoms, excessive sweating, flushing, intolerance to cold, intolerance to heat, increased hunger, increased thirst, increased urine, unexplained weight gain, unexplained weight loss, other Allergies: Coded Allergies: PENICILLINS (Verified Allergy, Unknown, 01/22/19) Subjective 01/23: vital signs improved, feeling better, tolerating meds well 01/24: feeling better, has been npo for procedure, pending with cards Objective Last 24 Hour Vital Signs Date Time Temp Pulse Resp B/P (MAP) Pulse Ox O2 Delivery O2 Flow Rate FiO2 01/24/19 04:00 77 01/24/19 04:00 97.9 60 20 109/62 (78) 97 01/24/19 00:07 76 01/24/19 00:00 97.7 54 20 113/61 (78) 97 01/23/19 23:57 Room Air 01/23/19 21:00 Room Air 01/23/19 20:00 64 01/23/19 20:00 97.5 59 20 102/67 (79) 97 01/23/19 18:00 59 01/23/19 16:00 97.5 65 20 113/66 (82) 92 01/23/19 13:01 63 18 97 Room Air 21 01/23/19 12:00 57 01/23/19 12:00 97.9 63 21 112/64 (80) 98 01/23/19 09:22 62 120/62 01/23/19 09:22 120/62 01/23/19 09:00 Room Air Intake and Output 01/23/19 01/24/19 19:00 07:00 Intake Total 120 ml Balance 120 ml Intake Oral 120 ml # Voids 5 2 # Bowel Movements 2 Laboratory Tests 01/24/19 06:40: Troponin I 0.000 Height (Feet): 5 Height (Inches): 5.00 Weight (Pounds): 220 Objective General: normal inspection, alert, mild distress, obese, Chronically Ill ENT: normal ENT inspection, hearing grossly normal, normal voice Neck: normal inspection, full range of motion, supple, no bony tend Respiratory: ++ sob wheezing bilaterally Cardiovascular #1: irregularly irregular, edema - 1+ Gastrointestinal: normal bowel sounds, non tender, soft, no guarding, hernia Genitourinary: no CVA tenderness Msk: normal inspection, back normal, normal range of motion Neurologic: normal inspection, alert, oriented x3, responsive Psychiatric: normal inspection, judgement/insight normal, mood/affect normal Skin: other - venous stasis changes to both legs Arsh Kilpatrick MD Jan 24, 2019 08:40
[2019-01-24] MEDS: Metoprolol Succinate XL 50mg tab ORAL SCH (09:00)
[2019-01-24] MEDS: Aspirin Baby 81mg ORAL SCH (09:00)
[2019-01-24] MEDS: Eliquis 2.5mg tablet ORAL SCH ×2 (09:00→20:23)
[2019-01-24] MEDS: Lisinopril 2.5mg tab ORAL SCH (09:01)
--- NOTE | 2019-01-24 09:24 | Anethesia Preoperative Eval ---
Anesthesia Pre-op PMH/ROS General Date of Evaluation: Jan 24, 2019 Anesthesiologist: Nas ASA Score: ASA 4 Mallampati Score Class I : Soft palate, uvula, fauces, pillars visible Class II: Soft palate, uvula, fauces visible Class III: Soft palate, base of uvula visible Class IV: Only hard plate visible Mallampati Classification: Class III Surgeon: Federico Diagnosis: Afib Surgical Procedure: SHLOMO with cardioversion Anesthesia History: none Family History: no anesthesia problems Allergies: Coded Allergies: PENICILLINS (Verified Allergy, Unknown, 01/22/19) Medications: see eMAR Patient NPO?: Yes NPO Date: Jan 23, 2019 NPO Time: 22:00 Past Medical History Cardiovascular: Reports: HTN, arrhythmia - afib, other - CHF,HLD; Denies: CAD, NM, valve dz Pulmonary: Denies: asthma, COPD, JAMES, other Gastrointestinal/Genitourinary: Reports: other - s/p liver transplant; Denies: GERD, CRI, ESRD Neurologic/Psychiatric: Denies: dementia, CVA, depression/anxiety, TIA, other Endocrine: Reports: DM; Denies: hypothyroidism, steroids, other HEENT: Denies: cataract (L), cataract (R), glaucoma, HABEMATOLEL (L), HABEMATOLEL (R), other Hematology/Immune: Denies: anemia, DVT, bleeding disorder, other Musculoskeletal/Integumentary: Denies: OA, RA, DJD, DDD, edema, other Other: obesity Anesthesia Pre-op Phys. Exam Physician Exam Last Vital Signs Date Time Temp Pulse Resp B/P (MAP) Pulse Ox O2 Delivery O2 Flow Rate FiO2 01/24/19 09:01 118/78 01/24/19 09:00 67 01/24/19 08:00 97.9 18 98 01/23/19 23:57 Room Air 01/23/19 13:01 21 Constitutional: NAD Cardiovascular: RRR Respiratory: CTA Airway Exam Mallampati Score: Class III MO: limited Neck: short, obese ROM: limited Anesthesia Pre-op A/P Labs Chemistry Test 01/24/19 06:40 Troponin I 0.000 ng/mL (0.000-0.056) Studies Pre-op Studies: EKG - afib, echo - mild to mod TR, RVSP [id number] pulm htn Risk Assessment & Plan Assessment: ASA IV Plan: MAC Status Change Before Surgery: No Pre-Antibiotics Drug: N/A Patrizia Reyna MD Jan 24, 2019 09:24
[2019-01-24] MEDS ORDERED: Lidocaine 1% MPF 10mg/ml 5ml ONE (10:17)
[2019-01-24] MEDS ORDERED: Propofol 200mg/20ml IV ONE (10:17)
[2019-01-24] MEDS ORDERED: LR 1000ml ONE (10:30)
--- NOTE | 2019-01-24 11:20 | Pre-Procedure Note/Attestation ---
Pre-Procedure Note/Attestation Complete Prior to Procedure Procedure Narrative: Transesophageal echocardiography followed by cardioversion Indications for Procedure Pre-Operative Diagnosis: Atrial fibrillation Attestation I attest that I discussed the nature of the procedure; its benefits; risks and complications; and alternatives (and the risks and benefits of such alternatives ), prior to the procedure, with the patient (or the patient's legal marketing representative). I attest that, if there was a reasonable possibility of needing a blood transfusion, the patient (or the patient's legal marketing representative) was given the [facility] standardized written summary, pursuant to the Lars Murdo Blood Safety Act ([place] Health and Safety Code # 1645, as amended). I attest that I re-evaluated the patient just prior to the surgery and that there has been no change in the patient's H&P, except as documented below: Virgil Caballero MD Jan 24, 2019 11:20
--- NOTE | 2019-01-24 11:22 | Brief Operative Note ---
Immediate Post Operative Note Operative Note Chief Complaint: Dyspnea Pre-op Diagnosis: Atrial fibrillation Procedure: SHLOMO followed by cardioversion Post-op Diagnosis: Sinus bradycardia Diastolic CHF Surgeon: Inessa Warren MD ,[facility] Director Of Casino: None Anesthesia: general Specimen: none Complications: none Condition: stable Fluids: None Estimated Blood Loss: none Drains: none Implant(s) used?: No Virgil Caballero MD Jan 24, 2019 11:22
--- NOTE | 2019-01-24 11:38 | Immediate Post-Op Evaluation ---
Immediate Post-Op Evalulation Immediate Post-Op Evalulation Procedure: SHLOMO with cardioversion Date of Evaluation: Jan 23, 2019 Time of Evaluation: 21:00 IV Fluids: 2200 Blood Products: 0 Estimated Blood Loss: 0 Urinary Output: 0 Blood Pressure Systolic: 93 Blood Pressure Diastolic: 61 Pulse Rate: 45 Respiratory Rate: 17 O2 Sat by Pulse Oximetry: 100 Temperature (Fahrenheit): 97.5 Pain Score (1-10): 0 Nausea: No Vomiting: No Complications 0 Patient Status: awake, reacts, patent, none Hydration Status: adequate Drug: N/A Patrizia Reyna MD Jan 24, 2019 11:38
--- NOTE | 2019-01-24 11:50 | NUR ---
CASE MANAGEMENT:REVIEW 01/24/19 SI: AFIB BRADYCARDIA. CHF 97.5 45 17 93/65 100% ON 6L/MASK TROPONIN(-) X4 IS: PROCEDURE: SHLOMO FOLLOWED BY [facility] ASA PO QD JANUVIA PO QD PROGRAF PO QHS PROTONIX PO QD ELIQUIS PO Q12 : TELEMETRY STATUS DCP: FROM HOME
--- NOTE | 2019-01-24 12:02 | Pulmonology Progress Note ---
Assessment/Plan Problems: (1) Atrial fibrillation (2) CHF (congestive heart failure) (3) Bradycardia Assessment/Plan check echo, d/w Dr Caballero for cardioversion today. watch intake output Lasix ad per cardio. Subjective ROS Limited/Unobtainable: No Constitutional: Reports: no symptoms HEENT: Repors: no symptoms Respiratory: Reports: no symptoms Allergies: Coded Allergies: PENICILLINS (Verified Allergy, Unknown, 01/22/19) Objective Last 24 Hour Vital Signs Date Time Temp Pulse Resp B/P (MAP) Pulse Ox O2 Delivery O2 Flow Rate FiO2 01/24/19 11:52 45 20 98/62 100 Simple Mask 6.0 01/24/19 11:42 43 17 97/64 100 Simple Mask 6.0 01/24/19 11:38 45 17 100 01/24/19 11:37 44 18 96/65 100 Simple Mask 6.0 01/24/19 11:32 97.5 45 17 93/65 100 Simple Mask 6.0 01/24/19 09:49 57 50 97 Room Air 21 01/24/19 09:01 118/78 01/24/19 09:00 67 118/78 01/24/19 09:00 Room Air 01/24/19 08:00 66 01/24/19 08:00 97.9 67 18 118/78 (91) 98 01/24/19 04:00 77 01/24/19 04:00 97.9 60 20 109/62 (78) 97 01/24/19 00:07 76 01/24/19 00:00 97.7 54 20 113/61 (78) 97 01/23/19 23:57 Room Air 01/23/19 21:00 Room Air 01/23/19 20:00 64 01/23/19 20:00 97.5 59 20 102/67 (79) 97 01/23/19 18:00 59 01/23/19 16:00 97.5 65 20 113/66 (82) 92 01/23/19 13:01 63 18 97 Room Air 21 Intake and Output 01/23/19 01/24/19 19:00 07:00 Intake Total 120 ml Balance 120 ml Intake Oral 120 ml # Voids 5 2 # Bowel Movements 2 General Appearance: WD/WN HEENT: normocephalic, atraumatic Respiratory/Chest: chest wall non-tender, normal breath sounds Breasts: no masses Cardiovascular: normal rate Abdomen: normal bowel sounds Genitourinary: normal external genitalia Extremities: no clubbing Skin: no rash Laboratory Tests 01/24/19 06:40: Troponin I 0.000 Current Medications Medications (Trade) Dose Ordered Sig/Brooke Route PRN Reason Start Time Stop Time Status Last Admin Dose Admin Acetaminophen (Tylenol) 650 mg Q4H PRN ORAL FEVER (temp>100.5F) 01/22/19 12:45 02/21/19 12:44 01/22/19 16:45 Albuterol/ Ipratropium (Albuterol/ Ipratropium) 3 ml Q4H PRN HHN Shortness of Breath 01/22/19 12:45 01/27/19 12:44 Apixaban (Eliquis) 2.5 mg EVERY 12 HOURS ORAL 01/22/19 21:00 02/21/19 20:59 01/23/19 20:37 Aspirin (ASA) 81 mg DAILY ORAL 01/25/19 09:00 02/24/19 08:59 Dextrose (Dextrose 50%) 25 ml Q30M PRN IV Hypoglycemia 01/22/19 13:00 02/21/19 12:50 Dextrose (Dextrose 50%) 50 ml Q30M PRN IV hypoglycemia 01/22/19 13:00 02/21/19 12:59 Diltiazem HCl (Cardizem) 10 mg Q1H PRN IV heart rate more than 120 01/22/19 12:45 02/21/19 12:44 Enalaprilat (Vasotec) 2.5 mg Q6H PRN IV sbp more than 160 01/22/19 12:45 02/21/19 12:44 Insulin Aspart (NovoLOG) BEFORE MEALS AND HS SUBQ 01/22/19 16:30 02/21/19 16:29 01/23/19 20:39 Nitroglycerin (Ntg) 0.4 mg Q5M PRN SL Prn Chest Pain 01/22/19 12:45 02/21/19 12:44 Ondansetron HCl (Zofran) 4 mg Q6H PRN IVP Nausea & Vomiting 01/22/19 12:45 02/21/19 12:44 Pantoprazole (Protonix) 40 mg DAILY ORAL 01/23/19 09:00 8/27/19 08:59 01/24/19 09:01 Polyethylene Glycol (Miralax) 17 gm DAILYPRN PRN ORAL Constipation 01/22/19 12:45 02/21/19 12:44 Sitagliptin Phosphate (Januvia) 100 mg DAILY ORAL 01/24/19 09:00 02/23/19 08:59 01/24/19 09:00 Tacrolimus (Prograf) 0.5 mg BEDTIME ORAL 01/23/19 21:00 02/22/19 20:59 01/23/19 20:37 Tacrolimus (Prograf) 1 mg DAILY ORAL 01/23/19 09:00 02/22/19 08:59 01/24/19 09:01 Temazepam (Restoril) 15 mg HSPRN PRN ORAL Insomnia 01/22/19 12:45 01/29/19 12:44 01/23/19 22:53 Regan Suarez MD Jan 24, 2019 12:02
--- NOTE | 2019-01-24 12:30 | NUR ---
NURSE NOTES: Received telephone report from Lorena CASILLAS PACU.
--- NOTE | 2019-01-24 12:35 | NUR ---
NURSE NOTES: Pt. arrived at the unit at 1235.
--- NOTE | 2019-01-24 12:40 | NUR ---
HAND-OFF: Report given to SONJA Beck. Pt. in stable condition. Patient's belongings singed and filed.
--- NOTE | 2019-01-24 12:40 | NUR ---
NURSE NOTES: Received report from Saad CASILLAS.
[2019-01-24] MEDS ORDERED: Nitroglycerin Subl 0.4mg tab SL PRN (14:30)
[2019-01-24] MEDS ORDERED: Enalaprilat 1.25mg/ml Inj IV PRN (14:35)
[2019-01-24] MEDS ORDERED: Miralax 17gm pkt ORAL PRN (14:35)
[2019-01-24] MEDS ORDERED: Albuterol/Ipratropium 3ml neb HHN PRN (14:35)
[2019-01-24] MEDS ORDERED: dilTIAZem HCl 25mg/5ml Inj IV PRN (14:45)
--- NOTE | 2019-01-24 18:15 | Procedure Note ---
DATE OF PROCEDURE: 01/24/2019 ATTENDING SURGEON: Virgil Caballero M.D., .A.C.C. PROCEDURE: Transesophageal echocardiography. PREOPERATIVE DIAGNOSIS: Evaluation for cardiac thrombus. POSTOPERATIVE DIAGNOSES: 1. No evidence of left atrial appendage thrombus. 2. Emptying velocity low at 0.25 m/sec. 3. There was no spontaneous echo contrast within the left atrial cavity, although there was severe biatrial enlargement. PLAN AND RECOMMENDATION: Given the fact that left atrial appendage thrombus is ruled out, we will follow with direct current cardioversion of atrial fibrillation using general anesthesia. DESCRIPTION OF PROCEDURE: Both transesophageal echocardiography and the benefits of direct current cardioversion was discussed with the patient, the risks, benefits, and alternatives of these procedures were provided. The patient agreed to the procedure and signed the informed consent. The patient was brought down to the OR room #7 in a fasting state. She was placed in the left lateral decubitus position. Bite block was placed within the mouth. The patient was attached to the central communications specialist. At the presence of anesthesiologist and using propofol as the general anesthetic agent, transesophageal echocardiography probe was advanced through the bite block, passed through the pharyngeal wall, and secured at a position just about 35 cm from the incisors teeth. After review of the cardiac structure, the probe was removed. The patient tolerated the procedure well without having any complications. CONCLUSION: No evidence of left atrial appendage thrombus. Virgil Caballero M.D. DR: KAYLI JOB#: [id number] CC:
--- NOTE | 2019-01-24 18:30 | Procedure Note ---
DATE OF PROCEDURE: 01/24/2019 PROCEDURE: Direct current cardioversion of atrial fibrillation. ATTENDING SURGEON: Virgil Caballero M.D., [facility]. PREOPERATIVE DIAGNOSIS: Atrial fibrillation with rapid ventricular response on arrival to the hospital with associated acute diastolic congestive heart failure. POSTOPERATIVE DIAGNOSIS: Successful cardioversion of atrial fibrillation to sinus bradycardia using 300 joules of direct current energy using synchronized mode. PLAN AND RECOMMENDATION: We will continue with obtaining 12-lead electrocardiogram for verification of the rhythm. The patient will be started on amiodarone tablet today. Given the fact that the patient showed sinus bradycardia, we will place a hold on metoprolol. We will continue monitoring the patient's rhythm closely. We may transfer the patient to step-down unit for close observation given profound sinus bradycardia right after cardioversion. The patient will be continued on combination of Eliquis and aspirin. DESCRIPTION OF PROCEDURE: After obtaining the informed consent and placed in the chart and following transesophageal echocardiography and ruling out left atrial appendage thrombus, the patient was in general anesthetic state with propofol, initially 200 joules of biphasic synchronized energy applied which did not convert atrial fibrillation to sinus rhythm. With a few changes on the position of the pads and increase of synchronized energy to 300 and ultimately to 360, after the fourth shock that be applied 360 joules of energy, atrial fibrillation was successfully converted to sinus bradycardia at rate of approximately 40 to 42 beats per minute with frequent APCs and single . The patient tolerated the procedure well without developing any complications. CONCLUSION: Successful cardioversion of atrial fibrillation to sinus bradycardia. Virgil Caballero M.D. DR: KAYLI JOB#: [id number] CC:
--- NOTE | 2019-01-24 19:20 | NUR ---
NURSE NOTES: received report from Ebony CASILLAS, pt. in bed awake, A/O X's4-able to make needs known, no signs or symptoms of acute cardiac or respiratory distress noted, bed in lowest position and call light within easy reach, bed alarm on, side rails up x's3 and safety brakes engaged, pt. appears to be be resting comfortable watching television, pt. aware to ask for assist when ambulating to use bed side commode, pt. appears to be sating well on room air at 98%- no distress noted, left AC 20G- IV intact and patent- SL, safety measures continued, will continue with plan of care.
--- NOTE | 2019-01-24 19:28 | Cardiology Progress Note ---
Assessment/Plan Assessment/Plan 1. Atrial fibrillation, s/p SHLOMO and successful cardioversion to SB, start very low sotalol as she takes Tacrolimus and combination would increase risk of CT prolongation. Tacrolimus level today. 2. Most likely acute on chronic diastolic congestive heart failure, stable off, furosemide. 2D echocardiogram confirm diastolic CHF, in addition, there is mild pulmonary HTN. 3. History of diabetes mellitus. Continue ASA and statins. 4. History of hypertension, currently hypotensive, hold on ACEI. Subjective Subjective Converted to SB/SR heart rate ranging from 50-60. No dizziness or lightheadedness. Objective Last 24 Hour Vital Signs Date Time Temp Pulse Resp B/P (MAP) Pulse Ox O2 Delivery O2 Flow Rate FiO2 01/24/19 16:00 97.9 54 22 103/63 (76) 99 01/24/19 15:49 56 01/24/19 12:41 51 01/24/19 12:35 97.7 52 21 99/63 (75) 95 01/24/19 12:32 97.6 47 18 98/67 98 Nasal Cannula 2.0 01/24/19 12:22 45 19 99/68 99 Nasal Cannula 2.0 01/24/19 12:12 97.5 46 20 96/68 99 Nasal Cannula 2.0 01/24/19 12:02 46 19 101/66 100 Nasal Cannula 2.0 01/24/19 11:52 45 20 98/62 100 Simple Mask 6.0 01/24/19 11:42 43 17 97/64 100 Simple Mask 6.0 01/24/19 11:38 45 17 100 01/24/19 11:37 44 18 96/65 100 Simple Mask 6.0 01/24/19 11:32 97.5 45 17 93/65 100 Simple Mask 6.0 01/24/19 09:49 57 50 97 Room Air 21 01/24/19 09:01 118/78 01/24/19 09:00 67 118/78 01/24/19 09:00 Room Air 01/24/19 08:00 66 01/24/19 08:00 97.9 67 18 118/78 (91) 98 01/24/19 04:00 77 01/24/19 04:00 97.9 60 20 109/62 (78) 97 01/24/19 00:07 76 01/24/19 00:00 97.7 54 20 113/61 (78) 97 01/23/19 23:57 Room Air 01/23/19 21:00 Room Air 01/23/19 20:00 64 01/23/19 20:00 97.5 59 20 102/67 (79) 97 Intake and Output 01/23/19 01/24/19 18:59 06:59 Intake Total 120 ml Balance 120 ml Intake Oral 120 ml # Voids 5 2 # Bowel Movements 2 2D Echo: LVEF 55%, KRIS, Mild MR, RVSP 39 mmHg Laboratory Tests Test 01/24/19 06:40 Troponin I 0.000 ng/mL (0.000-0.056) Objective HEENT: Atraumatic and normocephalic. Anicteric. Pupils are equal, round, and reactive to light and accommodation. Extraocular muscles intact. NECK: JVP elevated about 5cm. No carotid bruits. Carotid upstrokes 2+ bilaterally. CARDIOVASCULAR: Normal S1, S2. Regular rate and rhythm. A 2/6 mid systolic murmur at the left sternal border. PMI is at fourth intercostal space in the midclavicular line. LUNGS: Clear to auscultation bilaterally at this time. ABDOMEN: Soft, nontender, and nondistended. Obese. No hepatosplenomegaly. Positive bowel sounds. EXTREMITIES: No edema, clubbing or cyanosis, inner ankle discoloration due to venous insufficiency. Virgil Caballero MD Jan 24, 2019 19:28
--- NOTE | 2019-01-24 19:28 | NUR ---
HAND-OFF: Report given to Jeremy CASILLAS. Pt. remain stable.
--- NOTE | 2019-01-24 21:20 | NUR ---
NURSE NOTES: left message for DR. Caballero, if okay to administer Sotalol as patients heart rate is in low 50's- awaiting for call back from doctor.
--- NOTE | 2019-01-24 21:39 | NUR ---
NURSE NOTES: left message for doctor regarding rx Sotalol- awaiting for call back from doctor.
--- NOTE | 2019-01-24 21:41 | NUR ---
NURSE NOTES: per DR. Caballero not to administer Sotalol- due to heart rate in 50's.
[2019-01-24] MEDS: Sotalol 80mg tab ORAL SCH (21:43)
[2019-01-25] VITALS: BP 103/74
[2019-01-25 04:00] VITALS: BP 91/65
[2019-01-25 04:31] LABS: BASOPHILS % (AUTO) 0.7 % (0.0-2.0); EOSINOPHILS % (AUTO) 1.5 % (0.0-3.0); HEMATOCRIT 34.5 % (37.0-47.0); HEMOGLOBIN 11.8 G/DL (12.0-16.0); LYMPHOCYTES % (AUTO) 18.9 % (20.0-45.0); MEAN CORPUSCULAR VOLUME 98 FL (80-99); MONOCYTES % (AUTO) 9.5 % (1.0-10.0); NEUTROPHILS % (AUTO) 69.4 % (45.0-75.0); PLATELET COUNT 165 K/UL (150-450); RED BLOOD COUNT 3.52 M/UL (4.20-5.40); RED CELL DISTRIBUTION WIDTH 12.4 % (11.6-14.8); WHITE BLOOD COUNT 8.4 K/UL (4.8-10.8)
[2019-01-25] MEDS: Sotalol 80mg tab ORAL SCH ×2 (05:17→14:34)
[2019-01-25] MEDS: NovoLOG Insulin Flexpen SUBQ SCH ×3 (06:07→18:39)
--- NOTE | 2019-01-25 06:58 | NUR ---
HAND-OFF: Report given to Ebony CASILLAS, pt. remains stable and no signs of distress noted. Nurse aware to f/u with doctor regarding redness to left side of back area.
--- NOTE | 2019-01-25 07:00 | NUR ---
NURSE NOTES: Received bedside report from Dina CASILLAS. Pt. in bed, asleep but arousable. A/O x 4. No sign of distress. Denies pain at present. IV site at left AC #20g. in placed SL. Pleasant and cooperative with care. Will cont. to monitor.
[2019-01-25 08:00] VITALS: BP 110/69
--- NOTE | 2019-01-25 08:52 | 48 Hour Post Anesthesia Eval ---
Post Anesthesia Evaluation Procedure: SHLOMO with cardioversion Date of Evaluation: Jan 25, 2019 Time of Evaluation: 08:51 Blood Pressure Systolic: 110 0: 69 Pulse Rate: 51 Respiratory Rate: 20 Temperature (Fahrenheit): 97.6 O2 Sat by Pulse Oximetry: 98 Airway: patent Nausea: No Vomiting: No Pain Intensity: 0 Hydration Status: adequate Cardiopulmonary Status: Stable Mental Status/LOC: patient returned to baseline Follow-up Care/Observations: 0 Post-Anesthesia Complications: 0 Follow-up care needed: N/A Clem Linton MD Jan 25, 2019 08:52
[2019-01-25] MEDS ORDERED: Aspirin Baby 81mg ORAL SCH ×2 (09:00)
[2019-01-25] MEDS: Eliquis 2.5mg tablet ORAL SCH (09:23)
--- NOTE | 2019-01-25 09:47 | Hematology/Onc Progress Note ---
Assessment/Plan Assessment/Plan Assessment and Recs: # Atrial fibrillation with controlled ventricular response, the hr is currently 50-70s. Per cards, s/p cardioversion on 01/24/19 --> ok to continue eliquis --> satolol and vasotec --> eval with cards # Anemia of chronic disease --> hgb trend 12.2-->11.9-->11.8 --> if downtrends, consider panel w/u, at this time hold off --> no e/o hemolysis # Acute on chronic diastolic congestive heart failure. --> lasix as needed diuresis --> per cards # Diabetes mellitus type 2 --> continue statin and asa # Hypertension --> on lisinopril and mtp --> as per cards --> sbp goal <140 # Azotemia - consider ivf as per cards --> trend bmp as needed Appreciate hematology oncology consultant recs Subjective Constitutional: Denies: no symptoms, chills, fever, malaise, weakness, other HEENT: Denies: no symptoms, eye pain, blurred vision, tearing, double vision, ear pain, ear discharge, nose pain, nose congestion, throat pain, throat swelling, mouth pain, mouth swelling, other Cardiovascular: Denies: no symptoms, chest pain, edema, irregular heart rate, lightheadedness, palpitations, syncope, other Gastrointestinal/Abdominal: Denies: no symptoms, abdomen distended, abdominal pain, black stools, tarry stools, blood in stool, constipated, diarrhea, difficulty swallowing, nausea, poor appetite, poor fluid intake, rectal bleeding , vomiting, other Endocrine: Denies: no symptoms, excessive sweating, flushing, intolerance to cold, intolerance to heat, increased hunger, increased thirst, increased urine, unexplained weight gain, unexplained weight loss, other Allergies: Coded Allergies: PENICILLINS (Verified Allergy, Unknown, 01/22/19) Subjective 01/23: vital signs improved, feeling better, tolerating meds well 01/24: feeling better, has been npo for procedure, pending with cards 01/25: is a+o x4, no f/c noted, no bleeding, no night sweats, in sb Objective Objective Current Medications Medications (Trade) Dose Ordered Sig/Brooke Route PRN Reason Start Time Stop Time Status Last Admin Dose Admin Acetaminophen (Tylenol) 650 mg Q4H PRN ORAL FEVER (temp>100.5F) 01/24/19 16:45 02/21/19 12:44 01/25/19 04:57 Albuterol/ Ipratropium (Albuterol/ Ipratropium) 3 ml Q4H PRN HHN Shortness of Breath 01/24/19 14:35 01/27/19 14:34 Apixaban (Eliquis) 2.5 mg EVERY 12 HOURS ORAL 01/24/19 21:00 02/21/19 20:59 01/25/19 09:23 Aspirin (ASA) 81 mg DAILY ORAL 01/25/19 09:00 02/24/19 08:59 01/25/19 09:23 Dextrose (Dextrose 50%) 25 ml Q30M PRN IV Hypoglycemia 01/24/19 14:30 02/21/19 12:50 Dextrose (Dextrose 50%) 50 ml Q30M PRN IV hypoglycemia 01/24/19 14:30 02/21/19 12:59 Diltiazem HCl (Cardizem) 10 mg Q1H PRN IV heart rate more than 120 01/24/19 14:45 02/21/19 12:44 Enalaprilat (Vasotec) 2.5 mg Q6H PRN IV sbp more than 160 01/24/19 14:35 02/21/19 14:34 Insulin Aspart (NovoLOG) BEFORE MEALS AND HS SUBQ 01/24/19 16:30 02/21/19 16:29 01/25/19 06:07 Nitroglycerin (Ntg) 0.4 mg Q5M PRN SL Prn Chest Pain 01/24/19 14:30 02/21/19 12:44 Pantoprazole (Protonix) 40 mg DAILY ORAL 01/25/19 09:00 02/22/19 08:59 01/25/19 09:23 Polyethylene Glycol (Miralax) 17 gm DAILYPRN PRN ORAL Constipation 01/24/19 14:35 02/23/19 14:34 Sitagliptin Phosphate (Januvia) 100 mg DAILY ORAL 01/25/19 09:00 02/23/19 08:59 01/25/19 09:23 Sotalol HCl (Betapace) 40 mg EVERY 8 HOURS ORAL 01/24/19 22:00 02/23/19 21:59 Tacrolimus (Prograf) 0.5 mg BEDTIME ORAL 01/24/19 21:00 02/22/19 20:59 01/24/19 20:23 Tacrolimus (Prograf) 1 mg DAILY ORAL 01/25/19 09:00 02/22/19 08:59 01/25/19 09:23 Temazepam (Restoril) 15 mg HSPRN PRN ORAL Insomnia 01/24/19 14:30 01/31/19 14:29 Last 24 Hour Vital Signs Date Time Temp Pulse Resp B/P (MAP) Pulse Ox O2 Delivery O2 Flow Rate FiO2 01/25/19 08:52 51 20 98 01/25/19 08:00 97.6 51 20 110/69 (83) 98 01/25/19 05:27 97.9 01/25/19 05:17 59 91/65 01/25/19 04:00 97.9 61 18 91/65 (74) 98 01/25/19 03:24 52 01/25/19 00:00 Room Air 01/25/19 00:00 97.8 52 18 103/74 (84) 100 01/24/19 23:47 47 01/24/19 21:43 52 100/68 01/24/19 21:40 55 16 98 Nasal Cannula 2.0 01/24/19 21:40 98 Nasal Cannula 2.0 28 01/24/19 20:00 97.5 56 16 100/68 (79) 98 01/24/19 20:00 Room Air 01/24/19 20:00 52 01/24/19 16:00 97.9 54 22 103/63 (76) 99 01/24/19 15:49 56 01/24/19 12:41 51 01/24/19 12:35 97.7 52 21 99/63 (75) 95 01/24/19 12:32 97.6 47 18 98/67 98 Nasal Cannula 2.0 01/24/19 12:22 45 19 99/68 99 Nasal Cannula 2.0 01/24/19 12:12 97.5 46 20 96/68 99 Nasal Cannula 2.0 01/24/19 12:02 46 19 101/66 100 Nasal Cannula 2.0 01/24/19 11:52 45 20 98/62 100 Simple Mask 6.0 01/24/19 11:42 43 17 97/64 100 Simple Mask 6.0 01/24/19 11:38 45 17 100 01/24/19 11:37 44 18 96/65 100 Simple Mask 6.0 01/24/19 11:32 97.5 45 17 93/65 100 Simple Mask 6.0 01/24/19 09:49 57 50 97 Room Air 21 01/24/19 09:01 118/78 01/24/19 09:00 67 118/78 01/24/19 09:00 Room Air 01/24/19 08:00 66 01/24/19 08:00 97.9 67 18 118/78 (91) 98 01/24/19 04:00 77 01/24/19 04:00 97.9 60 20 109/62 (78) 97 01/24/19 00:07 76 01/24/19 00:00 97.7 54 20 113/61 (78) 97 01/23/19 23:57 Room Air 01/23/19 21:00 Room Air 01/23/19 20:00 64 01/23/19 20:00 97.5 59 20 102/67 (79) 97 01/23/19 18:00 59 01/23/19 16:00 97.5 65 20 113/66 (82) 92 01/23/19 13:01 63 18 97 Room Air 21 01/23/19 12:00 57 01/23/19 12:00 97.9 63 21 112/64 (80) 98 Intake and Output 01/24/19 01/25/19 19:00 07:00 Intake Total 650 ml Output Total 500 ml Balance 150 ml Intake Oral 450 ml IV Total 200 ml Output Urine Total 500 ml # Voids 3 3 # Bowel Movements 1 2 Labs Test 01/22/19 11:52 01/22/19 15:00 01/23/19 06:30 01/24/19 06:40 Urine Color Pale yellow Urine Appearance Clear Urine pH 7 (4.5-8.0) Urine Specific Emmalena 1.005 (1.005-1.035) Urine Protein Negative (NEGATIVE) Urine Glucose (UA) Negative (NEGATIVE) Urine Ketones Negative (NEGATIVE) Urine Blood Negative (NEGATIVE) Urine Nitrite Negative (NEGATIVE) Urine Bilirubin Negative (NEGATIVE) Urine Urobilinogen Normal MG/DL (0.0-1.0) Urine Leukocyte Esterase Negative (NEGATIVE) Troponin I 0.012 ng/mL (0.000-0.056) 0.015 ng/mL (0.000-0.056) 0.000 ng/mL (0.000-0.056) White Blood Count 6.1 K/UL (4.8-10.8) Red Blood Count 3.60 M/UL (4.20-5.40) Hemoglobin 11.9 G/DL (12.0-16.0) Hematocrit 35.2 % (37.0-47.0) Mean Corpuscular Volume 98 FL (80-99) Mean Corpuscular Hemoglobin 33.1 PG (27.0-31.0) Mean Corpuscular Hemoglobin Concent 33.8 G/DL (32.0-36.0) Red Cell Distribution Width 12.1 % (11.6-14.8) Platelet Count 157 K/UL (150-450) Mean Platelet Volume 8.5 FL (6.5-10.1) Neutrophils (%) (Auto) 61.4 % (45.0-75.0) Lymphocytes (%) (Auto) 26.7 % (20.0-45.0) Monocytes (%) (Auto) 9.0 % (1.0-10.0) Eosinophils (%) (Auto) 2.2 % (0.0-3.0) Basophils (%) (Auto) 0.8 % (0.0-2.0) Prothrombin Time 10.7 SEC (9.30-11.50) Prothromb Time International Ratio 1.0 (0.9-1.1) Activated Partial Thromboplast Time 26 SEC (23-33) C-Reactive Protein, Quantitative 0.8 mg/dL (0.00-0.90) Triglycerides Level 115 MG/DL (30-150) Cholesterol Level 172 MG/DL (< 200) LDL Cholesterol 124 mg/dL (<100) HDL Cholesterol 29 MG/DL (40-60) Cholesterol/HDL Ratio 5.9 (3.3-4.4) Thyroid Stimulating Hormone (TSH) 3.763 uiU/mL (0.358-3.740) Test 01/24/19 20:10 01/25/19 03:30 White Blood Count 8.4 K/UL (4.8-10.8) Red Blood Count 3.52 M/UL (4.20-5.40) Hemoglobin 11.8 G/DL (12.0-16.0) Hematocrit 34.5 % (37.0-47.0) Mean Corpuscular Volume 98 FL (80-99) Mean Corpuscular Hemoglobin 33.5 PG (27.0-31.0) Mean Corpuscular Hemoglobin Concent 34.2 G/DL (32.0-36.0) Red Cell Distribution Width 12.4 % (11.6-14.8) Platelet Count 165 K/UL (150-450) Mean Platelet Volume 8.4 FL (6.5-10.1) Neutrophils (%) (Auto) 69.4 % (45.0-75.0) Lymphocytes (%) (Auto) 18.9 % (20.0-45.0) Monocytes (%) (Auto) 9.5 % (1.0-10.0) Eosinophils (%) (Auto) 1.5 % (0.0-3.0) Basophils (%) (Auto) 0.7 % (0.0-2.0) Height (Feet): 5 Height (Inches): 5.00 Weight (Pounds): 220 Objective General: normal inspection, alert, mild distress, obese, Chronically Ill ENT: normal ENT inspection, hearing grossly normal, normal voice Neck: normal inspection, full range of motion, supple, no bony tend Respiratory: ++ sob wheezing bilaterally Cardiovascular #1: irregularly irregular, edema - 1+ Gastrointestinal: normal bowel sounds, non tender, soft, no guarding, hernia Genitourinary: no CVA tenderness Msk: normal inspection, back normal, normal range of motion Neurologic: normal inspection, alert, oriented x3, responsive Psychiatric: normal inspection, judgement/insight normal, mood/affect normal Skin: other - venous stasis changes to both legs Arsh Kilpatrick MD Jan 25, 2019 09:47
--- NOTE | 2019-01-25 10:00 | Pulmonology Progress Note ---
Assessment/Plan Problems: (1) Atrial fibrillation (2) CHF (congestive heart failure) (3) Bradycardia Assessment/Plan Sinus now tolerated cardioversion yesterday very well watch intake output Lasix ad per cardio. Subjective ROS Limited/Unobtainable: No Constitutional: Reports: no symptoms HEENT: Repors: no symptoms Respiratory: Reports: no symptoms Allergies: Coded Allergies: PENICILLINS (Verified Allergy, Unknown, 01/22/19) Objective Last 24 Hour Vital Signs Date Time Temp Pulse Resp B/P (MAP) Pulse Ox O2 Delivery O2 Flow Rate FiO2 01/25/19 08:52 51 20 98 01/25/19 08:00 48 01/25/19 08:00 97.6 51 20 110/69 (83) 98 01/25/19 05:27 97.9 01/25/19 05:17 59 91/65 01/25/19 04:00 97.9 61 18 91/65 (74) 98 01/25/19 03:24 52 01/25/19 00:00 Room Air 01/25/19 00:00 97.8 52 18 103/74 (84) 100 01/24/19 23:47 47 01/24/19 21:43 52 100/68 01/24/19 21:40 55 16 98 Nasal Cannula 2.0 28 01/24/19 21:40 98 Nasal Cannula 2.0 28 01/24/19 20:00 97.5 56 16 100/68 (79) 98 01/24/19 20:00 Room Air 01/24/19 20:00 52 01/24/19 16:00 97.9 54 22 103/63 (76) 99 01/24/19 15:49 56 01/24/19 12:41 51 01/24/19 12:35 97.7 52 21 99/63 (75) 95 01/24/19 12:32 97.6 47 18 98/67 98 Nasal Cannula 2.0 01/24/19 12:22 45 19 99/68 99 Nasal Cannula 2.0 01/24/19 12:12 97.5 46 20 96/68 99 Nasal Cannula 2.0 01/24/19 12:02 46 19 101/66 100 Nasal Cannula 2.0 01/24/19 11:52 45 20 98/62 100 Simple Mask 6.0 01/24/19 11:42 43 17 97/64 100 Simple Mask 6.0 01/24/19 11:38 45 17 100 01/24/19 11:37 44 18 96/65 100 Simple Mask 6.0 01/24/19 11:32 97.5 45 17 93/65 100 Simple Mask 6.0 Intake and Output 01/24/19 01/25/19 19:00 07:00 Intake Total 650 ml Output Total 500 ml Balance 150 ml Intake Oral 450 ml IV Total 200 ml Output Urine Total 500 ml # Voids 3 3 # Bowel Movements 1 2 General Appearance: WD/WN HEENT: atraumatic, anicteric Respiratory/Chest: chest wall non-tender, normal breath sounds Cardiovascular: normal peripheral pulses, regular rhythm Abdomen: normal bowel sounds, no organomegaly Genitourinary: normal external genitalia Extremities: no cyanosis Skin: no rash Laboratory Tests 01/24/19 20:10: Tacrolimus (Prograf) Level [Pending] 01/25/19 03:30: White Blood Count 8.4, Red Blood Count 3.52L, Hemoglobin 11.8L, Hematocrit 34.5L , Mean Corpuscular Volume 98, Mean Corpuscular Hemoglobin 33.5H, Mean Corpuscular Hemoglobin Concent 34.2, Red Cell Distribution Width 12.4, Platelet Count 165, Mean Platelet Volume 8.4, Neutrophils (%) (Auto) 69.4, Lymphocytes (% ) (Auto) 18.9L, Monocytes (%) (Auto) 9.5, Eosinophils (%) (Auto) 1.5, Basophils (%) (Auto) 0.7 Current Medications Medications (Trade) Dose Ordered Sig/Brooke Route PRN Reason Start Time Stop Time Status Last Admin Dose Admin Acetaminophen (Tylenol) 650 mg Q4H PRN ORAL FEVER (temp>100.5F) 01/24/19 16:45 02/21/19 12:44 01/25/19 04:57 Albuterol/ Ipratropium (Albuterol/ Ipratropium) 3 ml Q4H PRN HHN Shortness of Breath 01/24/19 14:35 01/27/19 14:34 Apixaban (Eliquis) 2.5 mg EVERY 12 HOURS ORAL 01/24/19 21:00 02/21/19 20:59 01/25/19 09:23 Aspirin (ASA) 81 mg DAILY ORAL 01/25/19 09:00 02/24/19 08:59 01/25/19 09:23 Dextrose (Dextrose 50%) 25 ml Q30M PRN IV Hypoglycemia 01/24/19 14:30 02/21/19 12:50 Dextrose (Dextrose 50%) 50 ml Q30M PRN IV hypoglycemia 01/24/19 14:30 02/21/19 12:59 Diltiazem HCl (Cardizem) 10 mg Q1H PRN IV heart rate more than 120 01/24/19 14:45 02/21/19 12:44 Enalaprilat (Vasotec) 2.5 mg Q6H PRN IV sbp more than 160 01/24/19 14:35 02/21/19 14:34 Insulin Aspart (NovoLOG) BEFORE MEALS AND HS SUBQ 01/24/19 16:30 02/21/19 16:29 01/25/19 06:07 Nitroglycerin (Ntg) 0.4 mg Q5M PRN SL Prn Chest Pain 01/24/19 14:30 02/21/19 12:44 Pantoprazole (Protonix) 40 mg DAILY ORAL 01/25/19 09:00 02/22/19 08:59 01/25/19 09:23 Polyethylene Glycol (Miralax) 17 gm DAILYPRN PRN ORAL Constipation 01/24/19 14:35 02/23/19 14:34 Sitagliptin Phosphate (Januvia) 100 mg DAILY ORAL 01/25/19 09:00 02/23/19 08:59 01/25/19 09:23 Sotalol HCl (Betapace) 40 mg EVERY 8 HOURS ORAL 01/24/19 22:00 02/23/19 21:59 Tacrolimus (Prograf) 0.5 mg BEDTIME ORAL 01/24/19 21:00 02/22/19 20:59 01/24/19 20:23 Tacrolimus (Prograf) 1 mg DAILY ORAL 01/25/19 09:00 02/22/19 08:59 01/25/19 09:23 Temazepam (Restoril) 15 mg HSPRN PRN ORAL Insomnia 01/24/19 14:30 01/31/19 14:29 Regan Suarez MD Jan 25, 2019 10:00
[2019-01-25 12:00] VITALS: BP 94/52
--- NOTE | 2019-01-25 13:22 | General Progress Note ---
Assessment/Plan Problem List: (1) Atrial fibrillation ICD Codes: I48.91 - Unspecified atrial fibrillation SNOMED: 83260881 (2) Bradycardia ICD Codes: R00.1 - Bradycardia, unspecified SNOMED: 34803602 (3) CHF (congestive heart failure) ICD Codes: I50.9 - Heart failure, unspecified SNOMED: 91225508 Status: stable, progressing Assessment/Plan: pt diet cardio eval cbc bmp am dc plan w hh Subjective Constitutional: Reports: weakness Allergies: Coded Allergies: PENICILLINS (Verified Allergy, Unknown, 01/22/19) All Systems: reviewed and negative except above Subjective eating calm Objective Last 24 Hour Vital Signs Date Time Temp Pulse Resp B/P (MAP) Pulse Ox O2 Delivery O2 Flow Rate FiO2 01/25/19 09:00 Room Air 01/25/19 08:52 51 20 98 01/25/19 08:00 48 01/25/19 08:00 97.6 51 20 110/69 (83) 98 01/25/19 05:27 97.9 01/25/19 05:17 59 91/65 01/25/19 04:00 97.9 61 18 91/65 (74) 98 01/25/19 03:24 52 01/25/19 00:00 Room Air 01/25/19 00:00 97.8 52 18 103/74 (84) 100 01/24/19 23:47 47 01/24/19 21:43 52 100/68 01/24/19 21:40 55 16 98 Nasal Cannula 2.0 28 01/24/19 21:40 98 Nasal Cannula 2.0 28 01/24/19 20:00 97.5 56 16 100/68 (79) 98 01/24/19 20:00 Room Air 01/24/19 20:00 52 01/24/19 16:00 97.9 54 22 103/63 (76) 99 01/24/19 15:49 56 Intake and Output 01/24/19 01/25/19 19:00 07:00 Intake Total 650 ml Output Total 500 ml Balance 150 ml Intake Oral 450 ml IV Total 200 ml Output Urine Total 500 ml # Voids 3 3 # Bowel Movements 1 2 Laboratory Tests 01/24/19 20:10: Tacrolimus (Prograf) Level [Pending] 01/25/19 03:30: White Blood Count 8.4, Red Blood Count 3.52L, Hemoglobin 11.8L, Hematocrit 34.5L , Mean Corpuscular Volume 98, Mean Corpuscular Hemoglobin 33.5H, Mean Corpuscular Hemoglobin Concent 34.2, Red Cell Distribution Width 12.4, Platelet Count 165, Mean Platelet Volume 8.4, Neutrophils (%) (Auto) 69.4, Lymphocytes (% ) (Auto) 18.9L, Monocytes (%) (Auto) 9.5, Eosinophils (%) (Auto) 1.5, Basophils (%) (Auto) 0.7 Height (Feet): 5 Height (Inches): 5.00 Weight (Pounds): 220 General Appearance: lethargic EENT: normal ENT inspection Neck: normal alignment Cardiovascular: normal peripheral pulses, normal rate, regular rhythm Respiratory/Chest: chest wall non-tender, lungs clear, normal breath sounds Abdomen: normal bowel sounds, non tender, soft Extremities: normal inspection Edema: no edema noted Arm (L), no edema noted Arm (R), no edema noted Leg (L), no edema noted Leg (R), no edema noted Pedal (L), no edema noted Pedal (R), no edema noted Generalized Neurologic: responsive, motor weakness Skin: normal pigmentation, warm/dry Yves Story DO Jan 25, 2019 13:22
[2019-01-25 16:00] VITALS: BP 108/68
--- NOTE | 2019-01-25 17:25 | Cardiology Report ---
APPROVED REPORT EXAM: Two-dimensional and M-mode echocardiogram with Doppler and color Doppler. INDICATION LV FUNCTION M-Mode DIMENSIONS IVSd1.0 (0.7-1.1cm)Left Atrium (MM)3.2 (1.6-4.0cm) LVDd4.9 (3.5-5.6cm)Aortic Root3.7 (2.0-3.7cm) PWd1.1 (0.7-1.1cm)Aortic Cusp Exc.2.1 (1.5-2.0cm) IVSs1.3 cm LVDs3.1 (2.5-4.0cm) PWs1.4 cm Technically difficult study due to poor acoustical windows. Normal left ventricular chamber size, systolic function and wall motion to extent visualized. Left ventricular ejection fraction estimated to be 55 -60%. No evidence of left ventricular hypertrophy . No evidence of pericardial effusion. Moderate left atrial enlargement . Mild right atrial enlargement . Normal right ventricular chamber size . Focal aortic valve sclerosis with normal cusp excursion. Moderately thickened mitral valve leaflets with normal excursion. Mitral annulus and aortic root calcification. Normal pulmonic valve structure. Normal tricuspid valve structure. IVC dilated at 2.6cm without physiologic collapse suggestive of increased RA pressure. A color flow and spectral Doppler study was performed and revealed: Trace aortic regurgitation. Mild mitral regurgitation. Left ventricular diastolic function is not diagnostic due to A-FIB. Mild to moderate tricuspid regurgitation. Tricuspid systolic velocities suggests peak right ventricular systolic pressure of 39 mmHg,consistent with mild pulmonary hypertension.
--- NOTE | 2019-01-25 18:00 | NUR ---
NURSE NOTES: Informed Dr. Caballero about pt. HR 44-49 when walking 50's. Told RN to walk her more around. And call him back.
--- NOTE | 2019-01-25 18:07 | Cardiology Report ---
APPROVED REPORT EKG Measurement Heart [id number] Atrial fibrillation Left axis deviation Right bundle branch block Abnormal ECG
--- NOTE | 2019-01-25 18:25 | NUR ---
NURSE NOTES: Called Dr. Caballero and informed him about HR of 61-[address] Caballero said he will see the pt. later.
--- NOTE | 2019-01-25 19:21 | NUR ---
HAND-OFF: Report given to Juwan RN. Pt. remain stable.
--- NOTE | 2019-01-25 19:22 | NUR ---
NURSE NOTES: Report received from SONJA Beck. Observed pt lying in the bed. Denies any pain at this time. A/O x4. SB on campus monitor with HR of 48 noted. On room air with no SOB. No distress noted at this time. IV on L AC 20G, SL. Bed in the lowest position. Side rails up x2. Will continue to monitor.
--- NOTE | 2019-01-25 19:54 | Cardiology Progress Note ---
Assessment/Plan Assessment/Plan 1. Atrial fibrillation, s/p SHLOMO and successful cardioversion to SB, HR up to 65 with walking, no antiarrhythmic meds at this point, may start multaq in the outpatient setting. 2. Chronic diastolic congestive heart failure, off furosemide. 3. History of diabetes mellitus. Continue ASA and statins. 4. History of hypertension, currently hypotensive, hold on ACEI. DC planning. Subjective Subjective Sinus rhythm with APCs at 55. No dizziness or lightheadedness. Objective Last 24 Hour Vital Signs Date Time Temp Pulse Resp B/P (MAP) Pulse Ox O2 Delivery O2 Flow Rate FiO2 01/25/19 16:00 97.4 50 20 108/68 (81) 99 01/25/19 15:24 48 01/25/19 14:34 49 109/80 01/25/19 12:00 97.8 47 19 94/52 (66) 98 01/25/19 11:44 46 01/25/19 09:00 Room Air 01/25/19 08:52 51 20 98 01/25/19 08:00 48 01/25/19 08:00 97.6 51 20 110/69 (83) 98 01/25/19 07:00 97 Nasal Cannula 2.0 28 01/25/19 07:00 58 18 99 Nasal Cannula 2.0 28 01/25/19 05:27 97.9 01/25/19 05:17 59 91/65 01/25/19 04:00 97.9 61 18 91/65 (74) 98 01/25/19 03:24 52 01/25/19 00:00 Room Air 01/25/19 00:00 97.8 52 18 103/74 (84) 100 01/24/19 23:47 47 01/24/19 21:43 52 100/68 01/24/19 21:40 55 16 98 Nasal Cannula 2.0 28 01/24/19 21:40 98 Nasal Cannula 2.0 28 01/24/19 20:00 97.5 56 16 100/68 (79) 98 01/24/19 20:00 Room Air 01/24/19 20:00 52 Intake and Output 01/24/19 01/25/19 18:59 06:59 Intake Total 650 ml Output Total 500 ml Balance 150 ml Intake Oral 450 ml IV Total 200 ml Output Urine Total 500 ml # Voids 3 3 # Bowel Movements 1 2 2D Echo: LVEF 55%, KRIS, Mild MR, RVSP 39 mmHg Laboratory Tests Test 01/24/19 20:10 01/25/19 03:30 Tacrolimus (Prograf) Level Pending White Blood Count 8.4 K/UL (4.8-10.8) Red Blood Count 3.52 M/UL (4.20-5.40) L Hemoglobin 11.8 G/DL (12.0-16.0) L Hematocrit 34.5 % (37.0-47.0) L Mean Corpuscular Volume 98 FL (80-99) Mean Corpuscular Hemoglobin 33.5 PG (27.0-31.0) H Mean Corpuscular Hemoglobin Concent 34.2 G/DL (32.0-36.0) Red Cell Distribution Width 12.4 % (11.6-14.8) Platelet Count 165 K/UL (150-450) Mean Platelet Volume 8.4 FL (6.5-10.1) Neutrophils (%) (Auto) 69.4 % (45.0-75.0) Lymphocytes (%) (Auto) 18.9 % (20.0-45.0) L Monocytes (%) (Auto) 9.5 % (1.0-10.0) Eosinophils (%) (Auto) 1.5 % (0.0-3.0) Basophils (%) (Auto) 0.7 % (0.0-2.0) Objective HEENT: Atraumatic and normocephalic. Anicteric. Pupils are equal, round, and reactive to light and accommodation. Extraocular muscles intact. NECK: JVP elevated about 5cm. No carotid bruits. Carotid upstrokes 2+ bilaterally. CARDIOVASCULAR: Normal S1, S2. Regular rate and rhythm. A 2/6 mid systolic murmur at the left sternal border. PMI is at fourth intercostal space in the midclavicular line. LUNGS: Clear to auscultation bilaterally at this time. ABDOMEN: Soft, nontender, and nondistended. Obese. No hepatosplenomegaly. Positive bowel sounds. EXTREMITIES: No edema, clubbing or cyanosis, inner ankle discoloration due to venous insufficiency. Virgil Caballero MD Jan 25, 2019 19:54
--- NOTE | 2019-01-25 20:30 | NUR ---
NURSE NOTES: at bedside and said okay to discharge pt.
--- NOTE | 2019-01-25 21:00 | NUR ---
NURSE NOTES: Notified regarding discharge cleared by .
--- NOTE | 2019-01-25 21:00 | NUR ---
NURSE NOTES: [facility] called and faxed regarding discharge order and pt address.
[2019-01-25] MEDS ORDERED: Tubing IV Secondary IV ONE (21:04)
[2019-01-25] MEDS ORDERED: NS 275ml ONE (21:04)
--- NOTE | 2019-01-25 21:05 | NUR ---
NURSE NOTES: pin pusher brought back to Tele. Belonging checked with pt. DC packet given.
--- NOTE | 2019-01-25 21:10 | NUR ---
NURSE NOTES: Escorted pt to the entrance on wheelchair with her family members.
--- NOTE | 2019-01-26 10:29 | Discharge Summary ---
Discharge Summary Discharge Summary _ DATE OF ADMISSION: 01/24/2019 DATE OF DISCHARGE: 01/25/2019 DISCHARGED BY: Dr. Story REASON FOR ADMISSION: 73 years old female with past medical history of hypertension, liver transplant in 2010, due to liver cirrhosis, congestive heart failure, atrial fibrillation, presented to emergency department with shortness of breath. Patient reported worsening shortness of breath in supine position. Patient reported increased orthopnea and dyspnea on exertion. She was sleeping with 3 pillows for the past 3 days. She denied recent cough , but the reported some wheezing. No fever or chills. Upon evaluation vital signs were stable. Laboratory work-up revealed no leukocytosis, stable hemoglobin and hematocrit. Stable electrolytes and renal parameters. Troponin -0 0.009. Pro BNP 1819. EKG revealed atrial fibrillation with controlled ventricular response. Patient admitted for further management. CONSULTANTS: water sander Dr. Aquino pulmonary/critical care Dr. Suarez photograph finisher/oncologist Dr. Kilpatrick [facility] COURSE: Patient admitted to direct observational unit. Echocardiogram revealed preserved ejection fraction 55 to 60% with no evidence of left ventricular hypertrophy. No evidence of wall motion abnormality. No evidence of pericardial effusion. Right ventricular systolic pressure of 39 consistent with mild pulmonary hypertension. Serial troponin x4 were negative. Patient received one dose of Lasix. Volumes and cardiorenal parameters were closely monitored. Patient was continue with antirejection medication. GI prophylaxis continued. Blood sugar was managed with Januvia and sliding scale of insulin. Blood pressure was closely monitored and managed as per water sander recommendation. Per water sander patient had chronic congestive heart failure and no need for diuretic therapy at this time. Lipid panel revealed elevated LDL 124. Low HDL 29. Statin continued. Patient subsequently undergone SHLOMO and successful cardioversion to sinus bradycardia. Patient tolerated procedure well. Patient remained in sinus rhythm. Patient subsequently was ready for discharge home and resume home health services. Due to rapid and unexpected improvement patient condition patient was discharged in 1 day. FINAL DIAGNOSES: Chronic CHF Atrial fibrillation with controlled ventricular response Status post SHLOMO and successful cardioversion to sinus bradycardia Diabetes mellitus type 2 Hypertension Anemia of chronic disease DISCHARGE MEDICATIONS: See Medication Reconciliation list. DISCHARGE INSTRUCTIONS: Patient was discharged home with home health services. Follow up with primary care provider in one week. I have been assigned to dictate discharge summary for this account. I was not involved in the patient's management. Leigh Sheridan COLLECTION ANALYST Jan 26, 2019 10:29
== END 2019-01-25 21:05 | disposition home health service (06) | DRG 308 ==
LOC: EMR 09:50 → EDBEDREQ 10:31 → 2E 10:36 → EDBEDREQ 11:28 → 2W 01-24 12:10 → OBSVTOIN 01-24 16:41
PROC: 5A2204Z Restoration of Cardiac Rhythm, Single (ICD-10-PCS; principal; 2019-01-24 10:30)
PROC: B246ZZ4 Ultrasonography of Right and Left Heart, Transesophageal (ICD-10-PCS; principal; 2019-01-24 10:30)
DX: I48.91 Unspecified atrial fibrillation (principal); I50.33 Acute on chronic diastolic (congestive) heart failure; Z94.4 Liver transplant status; I11.0 Hypertensive heart disease with heart failure; I45.2 Bifascicular block; D63.8 Anemia in other chronic diseases classified elsewhere; R79.89 Other specified abnormal findings of blood chemistry; Z88.0 Allergy status to penicillin; E11.9 Type 2 diabetes mellitus without complications; E66.9 Obesity, unspecified; Z79.4 Long term (current) use of insulin; R00.1 Bradycardia, unspecified; I95.9 Hypotension, unspecified; I27.20 Pulmonary hypertension, unspecified
CPT/HCPCS: 36415; 71045; 80053; 80061; 80197; 81003; 82550; 82553; 82962; 83690; 83880; 84443; 84484; 85025; 85379; 85610; 85730; 86140; 93005; 93306; 93312; 94003; 94150; 94664; 96374; 96375; 99285; J1815; J7620